=== PATIENT | female | born 1960 | race Caucasian/White ===

== ENCOUNTER 2019-01-04 10:46 | Emergency (ER) | payer OTHER ==
[2019-01-04] MEDS: BABY ASPIRIN 81 MG CHEW PO ONE (11:06)
[2019-01-04] MEDS: Nitrostat 0.4 MG (ED) SL ONE (11:06)
--- NOTE | 2019-01-04 11:11 | ERPHSYRPT ---
- History of Present Illness Time Seen by Provider: 01/04/19 11:07 Historian: patient Exam Limitations: no limitations Patient Subjective Stated Complaint: began having chest pain last nite at home took nitro and it alleviated it, she wasnt sure if gas indigestion or cardiac because she ate some griller before that as well. she ended up taking additional nitro about 4 or 5 she says Triage Nursing Assessment: pt is alert and oreitnedx3, able to ambulate by self , gait is steady but she is very weak, complaning of pain in chest, lung soudns cler diminished, some wheezes at base, pulses equal bialteral radius, patietn has skin rash all over upper nad lower extremities, 2+ edema in lower legs skin very tight and reddened , purple bruise like tinting on feet and toes. Physician History: 58-year-old female with significant past medical history of coronary artery disease, hypertension, morbid obesity, started having the chest pain since yesterday for which she took couple nitroglycerin, which did relieve her pain but then afterwards she started having chest pain again. Today morning her chest pain got worse so she took 3 or 4 more nitroglycerin, her chest pain did not relieved so she came to the emergency room. She denies any shortness of breath, nausea, vomiting. She states that her pain is referring to her left arm as well as on the left side of the face. Timing/Duration: yesterday Activities at Onset: activity Quality: burning Location: central Chest Pain Radiation: jaw, neck, arm Severity of Pain-Max: mild Severity of Pain-Current: mild Modifying Factors: Improves With: nothing Associated Symptoms: denies symptoms Prior Chest Pain/Cardiac Workup: angina, heart attack (few years ago) Nitro Today/Relief: 0.4 mg x 3 Aspirin Treatment Today: 81 mg x 1 Allergies/Adverse Reactions: sulfamethoxazole [From Bactrim] Allergy (Verified 01/04/19 11:04) trimethoprim [From Bactrim] Allergy (Verified 01/04/19 11:04) Home Medications: Aspirin [Aspirin EC] 162 mg PO DAILY 09/20/16 [History] Hydrocodone Bit/Acetaminophen [[place] 7.5-325 Tablet] 1 each PO Q8H PRN PRN 09/20 [History] Isosorbide Mononitrate [Isosorbide Mononitrate ER] 60 mg PO DAILY 09/20/16 [ History] Lisinopril 5 mg [Zestril 5 MG] 5 mg PO BID 09/20/16 [History] Metoprolol Tartrate [Lopressor] 50 mg PO BID 09/20/16 [History] Omeprazole 20 MG [Prilosec 20 mg] 20 mg PO DAILY 09/20/16 [History] Pravastatin Sodium [Pravachol] 40 mg PO DAILY 09/20/16 [History] Hx Tetanus, Diphtheria Vaccination/Date Given: Yes Hx Influenza Vaccination/Date Given: No Hx Pneumococcal Vaccination/Date Given: No Immunizations Up to Date: Yes - Review of Systems Constitutional: No Fever, No Chills Eyes: No Symptoms Ears, Nose, & Throat: No Symptoms Respiratory: No Cough, No Dyspnea Cardiac: Chest Pain, No Edema, No Syncope Abdominal/Gastrointestinal: No Abdominal Pain, No Nausea, No Vomiting, No Diarrhea Genitourinary Symptoms: No Dysuria Musculoskeletal: No Back Pain, No Neck Pain Skin: No Rash Neurological: No Dizziness, No Focal Weakness, No Sensory Changes Psychological: No Symptoms Endocrine: No Symptoms All Other Systems: Reviewed and Negative - Past Medical History Pertinent Past Medical History: Yes Neurological History: No Pertinent History Cardiac History: Hypertension, Myocardial Infarction (VT) Respiratory History: Asthma, Other Endocrine Medical History: No Pertinent History Musculoskeletal History: No Pertinent History Other Medical History: smoker - Past Surgical History Past Surgical History: Yes Cardiac: Cardiac Catheterization - Social History Smoking Status: Current every day smoker Drug Use: none Patient Lives Alone: No - Nursing Vital Signs Nursing Vital Signs: Initial Vital Signs Temperature 98 F 01/04/19 10:47 Pulse Rate 77 01/04/19 10:47 Respiratory Rate 20 01/04/19 10:47 Blood Pressure 143/107 01/04/19 10:47 O2 Sat by Pulse Oximetry 94 L 01/04/19 10:47 Pain Scale Pain Intensity 3 - Physical Exam General Appearance: no apparent distress, alert Eye Exam: PERRL/EOMI, eyes nml inspection Ears, Nose, Throat Exam: normal ENT inspection, moist mucous membranes Neck Exam: normal inspection, non-tender, supple, full range of motion Respiratory Exam: normal breath sounds, lungs clear, No respiratory distress Cardiovascular Exam: regular rate/rhythm, normal heart sounds Gastrointestinal/Abdomen Exam: soft, No tenderness, No mass Back Exam: normal inspection, No CVA tenderness, No vertebral tenderness Extremity Exam: normal inspection, normal range of motion Neurologic Exam: alert, oriented x 3, cooperative, normal mood/affect, sensation nml, No motor deficits Skin Exam: normal color, warm, dry SpO2: 94 - Course Nursing assessment & vital signs reviewed: Yes EKG Interpreted by Me: Non-specific ST Changes Rhythm Strip: Normal Sinus Rhythm - Radiology Exams Chest X-ray Interpretation: Reviewed by me Ordered Tests: Active Orders 24 hr Category Date Time Status Power Shovel Engineer STAT Care 01/04/19 10:54 Active EKG-ER Only STAT Care 01/04/19 10:53 Active IV Insertion STAT Care 01/04/19 10:53 Active Oxygen-ED Only Nasal Cannula 3 lpm Care 01/04/19 10:53 Active CHEST 1 VIEW (PORTABLE) Stat Exams 01/04/19 10:54 Taken CBC W DIFF Stat Lab 01/04/19 11:15 Completed CMP Stat Lab 01/04/19 11:15 Completed NT PRO BNP Stat Lab 01/04/19 11:15 Completed TROPONIN Q3H Lab 01/04/19 11:15 Completed TROPONIN Q3H Lab 01/04/19 14:00 Ordered TROPONIN Q3H Lab 01/04/19 17:00 Ordered TROPONIN Q3H Lab 01/04/19 20:00 Ordered TROPONIN Q3H Lab 01/04/19 23:00 Ordered Peak Expiratory Flow Rate ONCE RT 01/04/19 12:15 Active Respiratory Therapy Assessment DAILY RT 01/04/19 12:15 Active Medication Summary Generic Name Dose Route Start Last Admin Trade Name Freq PRN Reason Stop Dose Admin Sodium Chloride 1,000 mls @ 50 mls/hr 01/04/19 11:00 01/04/19 11:23 Sodium Chloride 0.9% 1000 Ml IV 02/03/19 10:59 50 mls/hr .Q20H KEVIN Administration Discontinued Medications Generic Name Dose Route Start Last Admin Trade Name Freq PRN Reason Stop Dose Admin Albuterol/Ipratropium 3 ml 01/04/19 12:07 01/04/19 12:16 Duoneb 0.5-3 Mg/3 Ml Neb IH 01/04/19 12:08 3 ml STAT ONE Administration Albuterol/Ipratropium Confirm 01/04/19 12:13 Duoneb 0.5-3 Mg/3 Ml Neb Administered 01/04/19 12:14 Dose 3 ml IH .STK-MED ONE Aspirin 81 mg 01/04/19 10:53 01/04/19 11:06 Baby Aspirin 81 Mg Chew PO 01/04/19 10:54 81 mg STAT ONE Administration Aspirin Confirm 01/04/19 11:19 Baby Aspirin 81 Mg Chew Administered 01/04/19 11:20 Dose 81 mg .ROUTE .STK-MED ONE Nitroglycerin 0.4 mg 01/04/19 10:53 01/04/19 11:06 Nitrostat 0.4 Mg (Ed) SL 01/04/19 10:54 0.4 mg STAT ONE Administration Nitroglycerin Confirm 01/04/19 11:19 Nitrostat 0.4 Mg (Ed) Administered 01/04/19 11:20 Dose 0.4 mg SL .STK-MED ONE Lab/Rad Data: Laboratory Result Diagrams 01/04/19 11:15 01/04/19 11:15 Laboratory Results 01/04/19 01/04/19 01/04/19 Range/Units 11:15 11:15 11:15 WBC 12.6 H (4.0-10.5) K/mm3 RBC 5.08 (4.1-5.4) M/mm3 Hgb 16.3 H (12.0-16.0) gm/dl Hct 51.3 H (35-47) % MCV 101.0 H (78-100) fl MCH 32.0 (26-32) pg MCHC 31.8 L (32-36) g/dl RDW 14.4 H (11.5-14.0) % Plt Count 291 (150-450) K/mm3 MPV 10.5 H (6-9.5) fl Gran % 79.8 H (36.0-66.0) % Eos # (Auto) 0.11 (0-0.5) Absolute Lymphs (auto) 1.85 (1.0-4.6) Absolute Monos (auto) 0.56 (0.0-1.3) Lymphocytes % 14.7 L (24.0-44.0) % Monocytes % 4.4 (0.0-12.0) % Eosinophils % 0.9 (0.00-5.0) % Basophils % 0.2 (0.0-0.4) % Absolute Granulocytes 10.04 H (1.4-6.9) Basophils # 0.03 (0-0.4) Sodium 142 (137-145) mmol/L Potassium 4.1 (3.5-5.1) mmol/L Chloride 104 (98-107) mmol/L Carbon Dioxide 30 (22-30) mmol/L Anion Gap 12.0 (5-15) MEQ/L BUN 10 (7-17) mg/dL Creatinine 0.61 (0.52-1.04) mg/dL Estimated GFR > 60.0 ML/MIN Glucose 117 H (74-106) mg/dL Calcium 9.1 (8.4-10.2) mg/dL Total Bilirubin 0.30 (0.2-1.3) mg/dL AST 24 (14-36) U/L ALT 18 (0-35) U/L Alkaline Phosphatase 86 (38-126) U/L Troponin I 0.177 H* (0.000-0.034) ng/mL NT-Pro-B Natriuret Pep 201 (0-900) pg/mL Serum Total Protein 7.9 (6.3-8.2) g/dL Albumin 4.3 (3.5-5.0) g/dL - Progress Progress: improved Air Movement: good Blood Culture(s) Obtained: No Antibiotics given: No Discussed with : Other (Dr Stephen otto covering for Dr Bragg, Dr Cuauhtemoc Martínez ED physician at [facility] ER) Counseled pt/family regarding: lab results, diagnosis, need for follow-up, rad results - Departure Departure Disposition: Transfer ([facility] ED) Clinical Impression: Non-ST elevation VT (NSTEMI) Condition: Stable Critical Care Time: Yes Critical Care Time(excluding separately billable procedures): 30-74 minutes Referrals: BAUTISTA ACEVES [Primary Care Provider] -
[2019-01-04] MEDS ORDERED: BABY ASPIRIN 81 MG CHEW ONE (11:19)
[2019-01-04] MEDS ORDERED: Sodium Chloride 0.9% 1000 ML 1,000 ML ONE (11:19)
[2019-01-04] MEDS ORDERED: Nitrostat 0.4 MG (ED) SL ONE (11:19)
[2019-01-04] MEDS: Sodium Chloride 0.9% 1000 ML 1,000 ML IV SCH (11:23)
[2019-01-04 11:49] LABS: BASOPHIL % 0.2 % (0.0-0.4); Basophil (Absolute #) 0.03 (0-0.4); Eosinophil % 0.9 % (0.00-5.0); Eosinophil (Absolute #) 0.11 (0-0.5); Granulocyte Absolute (ANC) 10.04 (1.4-6.9); Granulocytes % 79.8 % (36.0-66.0); Hematocrit 51.3 % (35-47); Hemoglobin 16.3 gm/dl (12.0-16.0); Lymphocyte (Absolute #) 1.85 (1.0-4.6); Lymphocytes % 14.7 % (24.0-44.0); Mean Corpuscular Hgb Concent. 31.8 g/dl (32-36); Mean Platelet Volume 10.5 fl (6-9.5); Monocyte (Absolute #) 0.56 (0.0-1.3); Monocytes % 4.4 % (0.0-12.0); Platelet Count 291 K/mm3 (150-450); Red Blood Count 5.08 M/mm3 (4.1-5.4); Red Cell Distribution Width 14.4 % (11.5-14.0); White Blood Count 12.6 K/mm3 (4.0-10.5)
[2019-01-04] MEDS ORDERED: DUONEB 0.5-3 MG/3 ml Neb IH ONE (12:13)
[2019-01-04 12:14] LABS: ALBUMIN 4.3 g/dL (3.5-5.0); ALKALINE PHOSPHATASE 86 U/L (38-126); BLOOD UREA NITROGEN 10 mg/dL (7-17); CHLORIDE 104 mmol/L (98-107); Calcium 9.1 mg/dL (8.4-10.2); Carbon Dioxide 30 mmol/L (22-30); Creatinine 1 0.61 mg/dL (0.52-1.04); Glucose 117 mg/dL (74-106); NT PRO BNP 201 pg/mL (0-900); Potassium 4.1 mmol/L (3.5-5.1); SGOT/AST 24 U/L (14-36); SGPT/ALT 18 U/L (0-35); SODIUM 142 mmol/L (137-145); Total Protein 7.9 g/dL (6.3-8.2)
[2019-01-04] MEDS: DUONEB 0.5-3 MG/3 ml Neb IH ONE (12:16)
[2019-01-04 13:00] VITALS: BP 161/101
[2019-01-04 13:09] VITALS: PULSE 91; O2SAT 95
--- NOTE | 2019-01-04 14:49 | XRAY ---
Indication: Chest pain. Comparison: October 01, 2016. Portable chest is clear. Heart and mediastinal structures within normal limits for AP portable technique. Bony thorax intact again with minimal degenerative changes and lower cervical fusion. Impression: Nonacute chest with chronic findings.
== END 2019-01-04 13:33 | disposition short-term general hospital (02) ==
LOC: ED 10:46
DX: I21.4 Non-ST elevation (NSTEMI) myocardial infarction (principal)
CPT/HCPCS: 36000; 36415; 71045; 80053; 83880; 84484; 85025; 93005; 93041; 94150; 94640; 96360; 96361; 99285; 99291; A9270-GY

== ENCOUNTER 2022-06-28 09:52 | Observation (INO) | payer OTHER ==
[2022-06-28] MEDS ORDERED: solu-MEDROL 125 MG, Sterile H2O 10 ml 2 ML IV ONE ×2 (10:43)
[2022-06-28] MEDS ORDERED: DUONEB 0.5-3 MG/3 ml Neb IH ONE ×2 (10:43→10:51)
[2022-06-28] MEDS ORDERED: solu-MEDROL ONE (11:09)
[2022-06-28] MEDS ORDERED: Sterile H2O 10 ml IJ ONE (11:09)
[2022-06-28 11:16] LABS: Absolute Neutrophil Ct (ANC) 15.63 x10^3/uL (1.4-6.9); BASOPHIL % 0.3 % (0.0-0.4); Basophil (Absolute #) 0.06 x10^3/uL (0-0.4); Eosinophil % 0.5 % (0.00-5.0); Hematocrit 44.4 % (35-47); Hemoglobin 13.4 g/dL (12.0-16.0); IMMATURE GRAN # 0.16 x10^3u/L (0.00-0.03); IMMATURE GRAN % 0.8 % (0.00-0.4); Lymphocytes % 11.6 % (24.0-44.0); Mean Cell Volume 98.2 fL (78-100); Mean Corpuscular Hemoglobin 29.6 pg (26-32); Mean Corpuscular Hgb Concent. 30.2 g/dL (32-36); Mean Platelet Volume 10.3 fL (7.5-11.0); Monocyte (Absolute #) 1.62 x10^3/uL (0.0-1.3); Monocytes % 8.2 % (0.0-12.0); Neutrophil % 78.6 % (36.0-66.0); Platelet Count 407 x10^3/uL (150-450); Red Blood Count 4.52 x10^6/uL (4.1-5.4); Red Cell Distribution Width 14.8 % (11.5-14.0); White Blood Count 19.9 x10^3/uL (4.0-10.5)
--- NOTE | 2022-06-28 11:45 | ERPHSYRPT ---
- History of Present Illness Time Seen by Provider: 06/28/22 10:31 Source: patient, family Exam Limitations: no limitations Patient Subjective Stated Complaint: C/O generalized fatigue for that past 4 days. States she hasn't left the house and is very drowsy. Patient was just at Dr. Unger's office prior to coming into the ER. Patient reports she had low oxygen saturation at his office and they recommended her coming to the ER for evaluation. Triage Nursing Assessment: Patient came into ED by W/C. She is alert and oriented. Labored breaths noted upon arrival to ER. 02 sats 87% on room air; 02 at 2L per N/C applied and sats increased to 93%. Bilateral feet noted to be purple in color and cool when up in W/C. Patient assisted to bed with stand by assist. Color to bilateral feet and BLE red once feet were placed up in the bed. Patient with a dry, non-productive cough noted. Patient reports a productive cough at home with varing colors of sputum. Physician History: 61 years old female with history of tobacco abuse, COPD, hypertension, hyperlipidemia, hypothyroidism, coronary artery disease status post stent ingpresented in the ER from primary care office with chief complaint of worsening generalized weakness with hypoxia. Patient apparently has a positive influenza 4 days ago and has been feeling weak fatigued tired, sleepy all the times and earlier her oxygen saturation was dropping to 87% on room air. Patient is currently on 2 L and satting around 93 to 95%. Patient reports generalized chest soreness because of repeated coughing and subjective feeling of fever and chills. Does have bilateral lower extremity swelling and redness which according to her is a chronic and is not any worsening than usual. Timing/Duration: week(s) (1), gradual onset, worse Activities at Onset: activity Severity of Dyspnea-Max: moderate Severity of Dyspnea-Current: moderate Possible Cause: illness exposure Modifying Factors: Worsens With: coughing, exertion Associated Symptoms: cough, chest pain/discomfort, edema, wheezing, muscle sp asms hands, productive cough, tightness Allergies/Adverse Reactions: sulfamethoxazole [From Bactrim] Allergy (Verified 06/28/22 10:28) trimethoprim [From Bactrim] Allergy (Verified 06/28/22 10:28) Home Medications: Albuterol 2.5 mg/3 ml Neb [Proventil 2.5 mg/3 ml Neb] 1 vial PO Q4-6HPRN PRN 06/28/22 [History] Aspirin EC 81 mg [Ecotrin 81 mg] 1 tab PO DAILY 06/28/22 [History] Atorvastatin Calcium [Lipitor] 1 tab PO HS 06/28/22 [History] Furosemide 40 mg [Lasix 40 MG] 1 tab PO DAILY 06/28/22 [History] Hydrocodone/Acetaminophen [Hydrocodone-Acetamin 7.5-325] 1 tab PO QID 06/28/22 [History] Levothyroxine Sodium 1 tab PO DAILY 06/28/22 [History] Lisinopril 10 mg [Zestril 10 MG] 1 tab PO BID 06/28/22 [History] Metoprolol Tartrate 50 mg [Lopressor 50 MG] 1 tab PO BID 06/28/22 [History] Omeprazole 1 tab PO DAILY 06/28/22 [History] Potassium Chloride 1 tab PO DAILY 06/28/22 [History] Hx Tetanus, Diphtheria Vaccination/Date Given: Yes Hx Influenza Vaccination/Date Given: No Hx Pneumococcal Vaccination/Date Given: Yes Immunizations Up to Date: Yes Travel Risk - International Travel Have you traveled outside of the country in past 3 weeks: No - Coronavirus Screening Are you exhibiting any of the following symptoms?: Yes Symptoms: Cough: New Onset, Shortness of Breath, Headaches/Body Aches/Fatigue - Vaccine Status Have you recieved a Covid-19 vaccination: No - Review of Systems Constitutional: Fever, Chills, Fatigue, Weakness Eyes: No Symptoms Ears, Nose, & Throat: No Symptoms Respiratory: Cough, Dyspnea, Dyspnea on Exertion ([place]), Wheezing Cardiac: Edema Abdominal/Gastrointestinal: No Symptoms Genitourinary Symptoms: No Symptoms Musculoskeletal: Myalgias Skin: Rash Neurological: No Symptoms Psychological: No Symptoms Endocrine: No Symptoms Hematologic/Lymphatic: No Symptoms Immunological/Allergic: No Symptoms - Past Medical History Pertinent Past Medical History: Yes Neurological History: No Pertinent History Cardiac History: Coronary Artery Disease, High Cholesterol, Hypertension, Myocardial Infarction ([place]) Respiratory History: Asthma, COPD, Other Endocrine Medical History: Hypothyroidism Musculoskeletal History: No Pertinent History GI Medical History: GERD Other Medical History: smoker - Past Surgical History Past Surgical History: Yes Cardiac: Cardiac Catheterization, Cardiac Stent Female Surgical History: Tubal Ligation Other Surgical History: NECK SURGERY - Social History Smoking Status: Current every day smoker How long have you smoked: >25 years Exposure to second hand smoke: No Drug Use: none Patient Lives Alone: No - Nursing Vital Signs Nursing Vital Signs: Initial Vital Signs Temperature 98.4 F 06/28/22 09:53 Pulse Rate 100 H 06/28/22 09:53 Respiratory Rate 34 H 06/28/22 09:53 Blood Pressure 110/77 06/28/22 09:53 O2 Sat by Pulse Oximetry 87 L 06/28/22 09:53 Pain Scale Pain Intensity 0 - Physical Exam General Appearance: mild distress, alert Eye Exam: PERRL/EOMI, eyes nml inspection Ears, Nose, Throat Exam: hearing grossly normal, normal ENT inspection Neck Exam: normal inspection, non-tender, supple, full range of motion Respiratory Exam: respiratory distress, diminished breath sounds, accessory muscle use, rhonchi, wheezing Cardiovascular/Chest Exam: normal heart sounds, regular rate/rhythm, edema (1+ bilateral) Abdominal/Gastrointestinal Exam: soft, normal bowel sounds, No tenderness Extremity Exam: non-tender, normal range of motion, pedal edema, swelling Neurologic Exam: alert, oriented x 3, cooperative, last dipper II-XII nml as tested, normal mood/affect, sensation nml, No motor deficits Skin Exam: normal color SpO2 Interpretation: O2 applied SpO2: 93 O2 Delivery: Nasal Cannula (2 L) - Course EKG Interpreted by Me: RATE (101), Sinus Tach, NORMAL AXIS, NORMAL INTERVALS, Non-specific ST Changes Ordered Tests: Active Orders 24 hr Category Date Time Status Bedrest ROUTINE Activity 06/28/22 15:52 Active Up With Assistance ROUTINE Activity 06/28/22 15:52 Active Social Worker STAT Care 06/28/22 10:44 Completed Code Status Order ROUTINE Care 06/28/22 15:52 Active EKG-ER Only STAT Care 06/28/22 10:43 Completed Fall Protocol Q1H Care 06/28/22 15:52 Active IV Care Q6H Care 06/28/22 15:52 Active IV Insertion STAT Care 06/28/22 10:[address] in Observation ROUTINE Care 06/28/22 15:52 Active [place] Hose, Apply ROUTINE Care 06/28/22 15:52 Active Weight,Daily 0600 Care 06/28/22 15:52 Active Heart-Healthy Diet Diet 06/28/22 Dinner Active CHEST 1 VIEW (PORTABLE) Stat Exams 06/28/22 11:50 Completed CHEST WITH CONTRAST [CT] Stat Exams 06/28/22 12:53 Completed BLOOD CULTURE Stat Lab 06/28/22 11:36 Received CBC W DIFF AM.LAB Lab 06/29/22 04:00 Ordered CBC W DIFF Stat Lab 06/28/22 11:10 Completed CMP AM.LAB Lab 06/29/22 04:00 Ordered CMP Stat Lab 06/28/22 11:10 Completed D-DIMER QUANTITATIVE Stat Lab 06/28/22 12:31 Completed Lactic Acid Stat Lab 06/28/22 11:12 Completed MAGNESIUM Stat Lab 06/28/22 11:10 Completed NT PRO BNP Stat Lab 06/28/22 11:10 Completed PROCALCITONIN Stat Lab 06/28/22 Completed T4 (Thyroxine) Stat Lab 06/28/22 11:10 Completed TROPONIN Q4H Lab 06/28/22 11:10 Completed TROPONIN Q4H Lab 06/28/22 15:03 Completed TROPONIN Q4H Lab 06/28/22 18:15 Received TSH, 3RD Generation Stat Lab 06/28/22 11:10 Completed Oxygen Nasal Cannula 2 lpm RT 06/28/22 15:52 Active Transfer Order Routine Transfer 06/28/22 Completed Medication Summary Generic Name Dose Route Start Last Admin Trade Name Freq PRN Reason Stop Dose Admin Acetaminophen 650 mg 06/28/22 15:52 Acetaminophen 325 Mg Tablet PO 07/28/22 15:51 Q4H PRN PRN PAIN AND/OR FEVER Albuterol/Ipratropium 3 ml 06/28/22 15:52 06/28/22 17:49 Ipratropium/Albuterol Sulfate 3 Ml Ampul.Neb IH 07/28/22 15:51 3 ml Q6HRT KEVIN Administration Clotrimazole 0 gm 06/28/22 19:00 Clotrimazole 30 Gm Cream TP 07/28/22 18:59 BID KEVIN Methylprednisolone Sodium 0 mg 06/28/22 18:00 06/28/22 18:41 Succinate 60 mg/ Sterile Water IV 07/28/22 17:59 60 mg 2 ml Q6HT KEVIN Administration Enoxaparin Sodium 40 mg 06/28/22 17:00 06/28/22 18:41 Enoxaparin Sodium 40 Mg/0.4 Ml Syringe SQ 07/28/22 16:59 40 mg DAILY KEVIN Administration Azithromycin 500 mg in 250 mls @ 250 mls/hr 06/29/22 10:00 Zithromax 500 Mg/ 250 Ml Nacl Premix IV 07/29/22 09:59 Q24H10 [facility] Ceftriaxone Sodium/Dextrose 2 g in 50 mls @ 100 mls/hr 06/29/22 10:00 Rocephin 2 Gm-D5w 50ml Bag IV 07/02/22 09:59 Q24H10 [facility] Insulin Human Lispro 0 unit 06/28/22 15:52 Insulin Lispro 1 Unit SQ 07/28/22 15:51 UD PRN HYPERGLYCEMIA Morphine Sulfate 2 mg 06/28/22 15:52 Morphine Sulfate 2 Mg/Ml Inj IV 07/03/22 15:51 Q4H PRN PRN PAIN Ondansetron HCl 4 mg 06/28/22 15:52 Ondansetron Hcl 4 Mg/2 Ml Vial IV 07/28/22 15:51 Q6H PRN PRN NAUSEA/VOMITING Pantoprazole Sodium 40 mg 06/28/22 17:00 06/28/22 18:41 Pantoprazole 40 Mg Vial IV 07/28/22 16:59 40 mg Q24H10 [facility] Administration Discontinued Medications Generic Name Dose Route Start Last Admin Trade Name Freq PRN Reason Stop Dose Admin Albuterol/Ipratropium 3 ml 06/28/22 10:43 06/28/22 10:55 Ipratropium/Albuterol Sulfate 3 Ml Ampul.Neb IH 06/28/22 10:44 3 ml STAT ONE Administration Albuterol/Ipratropium Confirm 06/28/22 10:51 Ipratropium/Albuterol Sulfate 3 Ml Ampul.Neb Administered 06/28/22 10:52 Dose 3 ml IH .STK-MED ONE Aspirin 324 mg 06/28/22 12:37 06/28/22 12:57 Aspirin 81 Mg Tab.Chew PO 06/28/22 12:38 324 mg STAT ONE Administration Aspirin Confirm 06/28/22 12:55 Aspirin 81 Mg Tab.Chew Administered 06/28/22 12:56 Dose 324 mg .ROUTE .STK-MED ONE Clotrimazole 30 gm 06/28/22 18:53 06/28/22 19:01 Clotrimazole 30 Gm Cream TP 06/28/22 18:54 Not Given STAT ONE Methylprednisolone Sodium 0 mg 06/28/22 10:43 06/28/22 11:12 Succinate 125 mg/ Sterile IV 06/28/22 10:44 125 mg Water 2 ml STAT ONE Administration Azithromycin 500 mg in 250 mls @ 250 mls/hr 06/28/22 12:15 06/28/22 13:59 Zithromax 500 Mg/ 250 Ml Nacl Premix IV 06/28/22 13:14 Infused STAT STA Infusion Ceftriaxone Sodium/Dextrose 2 g in 50 mls @ 100 mls/hr 06/28/22 12:15 06/28/22 12:50 Rocephin 2 Gm-D5w 50ml Bag IV 06/28/22 12:44 Infused STAT STA Infusion Ceftriaxone Sodium/Dextrose Confirm 06/28/22 12:18 Rocephin 2 Gm-D5w 50ml Bag Administered 06/28/22 12:19 Dose 2 g in 50 mls @ ud IV .STK-MED ONE Azithromycin Confirm 06/28/22 12:56 Zithromax 500 Mg/ 250 Ml Nacl Premix Administered 06/28/22 12:57 Dose 500 mg in 250 mls @ ud IV .STK-MED ONE Methylprednisolone Sodium Succinate Confirm 06/28/22 11:09 Methylprednis Sod Succ 125 Mg/2 Ml Vial Administered 06/28/22 11:10 Dose 125 mg .ROUTE .STK-MED ONE Oseltamivir Phosphate 75 mg 06/28/22 12:23 06/28/22 12:52 Oseltamivir 75 Mg Cap PO 06/28/22 12:24 Not Given STAT ONE Oseltamivir Phosphate 75 mg 06/28/22 22:00 Oseltamivir 75 Mg Cap PO 07/03/22 21:59 BID KEVIN Sterile Water Confirm 06/28/22 11:09 Water For Injection,Sterile 10 Ml Vial Administered 06/28/22 11:10 Dose 10 ml IJ .STK-MED ONE Lab/Rad Data: Laboratory Result Diagrams 06/28/22 11:10 06/28/22 11:10 Laboratory Results 01/19/23 01/19/23 01/19/23 Range/Units 15:03 12:31 11:20 WBC (4.0-10.5) x10^3/uL RBC (4.1-5.4) x10^6/uL Hgb (12.0-16.0) g/dL Hct (35-47) % MCV (78-100) fL MCH (26-32) pg MCHC (32-36) g/dL RDW (11.5-14.0) % Plt Count (150-450) x10^3/uL MPV (7.5-11.0) fL Gran % (36.0-66.0) % Immature Gran % (Auto) (0.00-0.4) % Nucleat RBC Rel Count (0.00-0.1) % Eos # (Auto) (0-0.5) x10^3/uL Immature Gran # (Auto) (0.00-0.03) x10^3u/L Absolute Lymphs (auto) (1.0-4.6) x10^3/uL Absolute Monos (auto) (0.0-1.3) x10^3/uL Absolute Nucleated RBC (0.00-0.01) x10^3u/L Lymphocytes % (24.0-44.0) % Monocytes % (0.0-12.0) % Eosinophils % (0.00-5.0) % Basophils % (0.0-0.4) % Absolute Granulocytes (1.4-6.9) x10^3/uL Basophils # (0-0.4) x10^3/uL D-Dimer 2.18 H* (0.0-0.50) mg/L Sodium (137-145) mmol/L Potassium (3.5-5.1) mmol/L Chloride (98-107) mmol/L Carbon Dioxide (22-30) mmol/L Anion Gap (5-15) MEQ/L Venous BUN (8-26) mg/dL Creatinine (0.6-1.3) mg/dL Estimated GFR ML/MIN Glucose (74-106) mg/dL Lactic Acid (0.4-2.0) Calcium (8.4-10.2) mg/dL Magnesium (1.6-2.3) mg/dL Total Bilirubin (0.2-1.3) mg/dL AST (14-36) U/L ALT (0-35) U/L Alkaline Phosphatase (38-126) U/L Troponin I (0.000-0.034) ng/mL NT-Pro-B Natriuret Pep (0-900) pg/mL Serum Total Protein (6.3-8.2) g/dL Albumin (3.5-5.0) g/dL Influenza Type A Ag NEGATIVE (NEGATIVE) Influenza Type B Ag NEGATIVE (NEGATIVE) RSV (PCR) NEGATIVE (Negative) SARS-CoV-2 (PCR) NEGATIVE (NEGATIVE) Slides for Path Review 06/28/22 06/28/22 06/28/22 Range/Units 11:12 11:10 11:10 WBC (4.0-10.5) x10^3/uL RBC (4.1-5.4) x10^6/uL Hgb (12.0-16.0) g/dL Hct (35-47) % MCV (78-100) fL MCH (26-32) pg MCHC (32-36) g/dL RDW (11.5-14.0) % Plt Count (150-450) x10^3/uL MPV (7.5-11.0) fL Gran % (36.0-66.0) % Immature Gran % (Auto) (0.00-0.4) % Nucleat RBC Rel Count (0.00-0.1) % Eos # (Auto) (0-0.5) x10^3/uL Immature Gran # (Auto) (0.00-0.03) x10^3u/L Absolute Lymphs (auto) (1.0-4.6) x10^3/uL Absolute Monos (auto) (0.0-1.3) x10^3/uL Absolute Nucleated RBC (0.00-0.01) x10^3u/L Lymphocytes % (24.0-44.0) % Monocytes % (0.0-12.0) % Eosinophils % (0.00-5.0) % Basophils % (0.0-0.4) % Absolute Granulocytes (1.4-6.9) x10^3/uL Basophils # (0-0.4) x10^3/uL D-Dimer (0.0-0.50) mg/L Sodium 139 (137-145) mmol/L Potassium 4.2 (3.5-5.1) mmol/L Chloride 101 (98-107) mmol/L Carbon Dioxide 31 H (22-30) mmol/L Anion Gap 11.1 (5-15) MEQ/L Venous BUN 26 (8-26) mg/dL Creatinine 1.1 (0.6-1.3) mg/dL Estimated GFR > 60.0 ML/MIN Glucose 117 H (74-106) mg/dL Lactic Acid 1.3 (0.4-2.0) Calcium 8.7 (8.4-10.2) mg/dL Magnesium 2.4 H (1.6-2.3) mg/dL Total Bilirubin 0.80 (0.2-1.3) mg/dL AST 44 H (14-36) U/L ALT 31 (0-35) U/L Alkaline Phosphatase 148 H (38-126) U/L Troponin I 0.305 H* (0.000-0.034) ng/mL NT-Pro-B Natriuret Pep 446 (0-900) pg/mL Serum Total Protein 8.5 H (6.3-8.2) g/dL Albumin 4.1 (3.5-5.0) g/dL Influenza Type A Ag (NEGATIVE) Influenza Type B Ag (NEGATIVE) RSV (PCR) (Negative) SARS-CoV-2 (PCR) (NEGATIVE) Slides for Path Review 06/28/22 Range/Units 11:10 WBC 19.9 H (4.0-10.5) x10^3/uL RBC 4.52 (4.1-5.4) x10^6/uL Hgb 13.4 (12.0-16.0) g/dL Hct 44.4 (35-47) % MCV 98.2 (78-100) fL MCH 29.6 (26-32) pg MCHC 30.2 L (32-36) g/dL RDW 14.8 H (11.5-14.0) % Plt Count 407 (150-450) x10^3/uL MPV 10.3 (7.5-11.0) fL Gran % 78.6 H (36.0-66.0) % Immature Gran % (Auto) 0.8 H (0.00-0.4) % Nucleat RBC Rel Count 0.0 (0.00-0.1) % Eos # (Auto) 0.10 (0-0.5) x10^3/uL Immature Gran # (Auto) 0.16 H (0.00-0.03) x10^3u/L Absolute Lymphs (auto) 2.30 (1.0-4.6) x10^3/uL Absolute Monos (auto) 1.62 H (0.0-1.3) x10^3/uL Absolute Nucleated RBC 0.00 (0.00-0.01) x10^3u/L Lymphocytes % 11.6 L (24.0-44.0) % Monocytes % 8.2 (0.0-12.0) % Eosinophils % 0.5 (0.00-5.0) % Basophils % 0.3 (0.0-0.4) % Absolute Granulocytes 15.63 H (1.4-6.9) x10^3/uL Basophils # 0.06 (0-0.4) x10^3/uL D-Dimer (0.0-0.50) mg/L Sodium (137-145) mmol/L Potassium (3.5-5.1) mmol/L Chloride (98-107) mmol/L Carbon Dioxide (22-30) mmol/L Anion Gap (5-15) MEQ/L Venous BUN (8-26) mg/dL Creatinine (0.6-1.3) mg/dL Estimated GFR ML/MIN Glucose (74-106) mg/dL Lactic Acid (0.4-2.0) Calcium (8.4-10.2) mg/dL Magnesium (1.6-2.3) mg/dL Total Bilirubin (0.2-1.3) mg/dL AST (14-36) U/L ALT (0-35) U/L Alkaline Phosphatase (38-126) U/L Troponin I (0.000-0.034) ng/mL NT-Pro-B Natriuret Pep (0-900) pg/mL Serum Total Protein (6.3-8.2) g/dL Albumin (3.5-5.0) g/dL Influenza Type A Ag (NEGATIVE) Influenza Type B Ag (NEGATIVE) RSV (PCR) (Negative) SARS-CoV-2 (PCR) (NEGATIVE) Slides for Path Review YES - Progress Progress: improved, re-examined Air Movement: good Progress Note: 06/28/22 12:32 61 years old female with history of COPD tobacco abuse, CAD with stenting, hypertension, hypothyroidism with recent influenza positive is sent in ER from primary care office with hypoxia. Patient has been fatigued tired and sleeping all the time. Patient complaining of generalized chest soreness because of repeated coughing. Patient was hypoxic to 87% on presentation in the ER and currently on 2 L oxygen. EKG showed sinus rhythm with no acute ST elevations. He is given DuoNeb and Solu-Medrol, on reevaluation feeling much better has a white count of 20 with normal lactate and chest x-ray showing pneumonic consolidation, given a dose of Rocephin and Zithromax. Initial troponin 0.305. I have discussed with Dr. Velazquez who does not think patient has acute cardiac event causing elevation in troponin but because of influenza and underlying respiratory issue causing it and I do agree with him. He does not want me to transfer patient and will trend cardiac enzymes. I have shared the results with patient and family who understand and agree with it. I will obtain D-dimer and if positive CTA chest to make sure she does not have a pulmonary embolism causing elevation in her troponin. Blood Culture(s) Obtained: Yes Antibiotics given: Yes Discussed with : Ana Will see patient in: hospital (observation) Counseled pt/family regarding: lab results, diagnosis, rad results, smoking cessation - Departure Departure Disposition: Observation Clinical Impression: Non-ST elevation [place] (NSTEMI) Respiratory failure Qualifiers: Chronicity: acute Respiratory failure complication: hypoxia Qualified Code(s): J96.01 - Acute respiratory failure with hypoxia Pneumonia Qualifiers: Pneumonia type: due to unspecified organism Laterality: bilateral Lung loca tion: unspecified part of lung Qualified Code(s): J18.9 - Pneumonia, unspecified organism Condition: Good Critical Care Time: No
--- NOTE | 2022-06-28 12:07 | XRAY ---
Indication: Short of breath. Comparison: January 04, 2019 Portable chest demonstrates new left mid to lower lung patchy consolidating and nonconsolidating airspace disease without large effusion. Heart not enlarged. Bony thorax intact again with mild degenerative changes.
[2022-06-28 12:11] LABS: ALBUMIN 4.1 g/dL (3.5-5.0); ALKALINE PHOSPHATASE 148 U/L (38-126); ANION GAP 11.1 MEQ/L (5-15); CHLORIDE 101 mmol/L (98-107); Calcium 8.7 mg/dL (8.4-10.2); Carbon Dioxide 31 mmol/L (22-30); Creatinine 1 0.93 mg/dL (0.52-1.04); EST GLOMERULAR FILTRATION RATE > 60.0 ML/MIN; Glucose 117 mg/dL (74-106); MAGNESIUM 2.4 mg/dL (1.6-2.3); NT PRO BNP 446 pg/mL (0-900); Potassium 4.2 mmol/L (3.5-5.1); SGOT/AST 44 U/L (14-36); SGPT/ALT 31 U/L (0-35); SODIUM 139 mmol/L (137-145); Total Protein 8.5 g/dL (6.3-8.2)
[2022-06-28] MEDS ORDERED: ROCEPHIN 2 Gm-D5w 50ML BAG** 2 G/50 ML IVPB IV STA (12:15)
[2022-06-28] MEDS ORDERED: Zithromax 500 MG/ 250 ML NaCl Premix 500 MG/250 ML IVPB IV STA (12:15)
[2022-06-28] MEDS ORDERED: ROCEPHIN 2 Gm-D5w 50ML BAG** 2 G/50 ML IVPB IV ONE (12:18)
[2022-06-28] MEDS ORDERED: Tamiflu 75MG Capsule PO ONE (12:23)
[2022-06-28 12:25] LABS: INFLUENZA A NEGATIVE (NEGATIVE); INFLUENZA B NEGATIVE (NEGATIVE); RESPIRATORY SYNCTIAL VIRUS NEGATIVE (Negative); SARS-CoV-2 Xpert Express NEGATIVE (NEGATIVE)
[2022-06-28] MEDS ORDERED: BABY ASPIRIN 81 MG CHEW PO ONE (12:37)
[2022-06-28] MEDS ORDERED: BABY ASPIRIN 81 MG CHEW ONE (12:55)
[2022-06-28] MEDS ORDERED: Zithromax 500 MG/ 250 ML NaCl Premix 500 MG/250 ML IVPB IV ONE (12:56)
[2022-06-28 13:24] LABS: Slide Review 1 YES
[2022-06-28 13:29] LABS: ISTAT BUN 26 mg/dL (8-26)
[2022-06-28 13:30] LABS: ISTAT CREA 1.1 mg/dL (0.6-1.3)
--- NOTE | 2022-06-28 14:33 | XRAY ---
Indication: Cough and short of breath. Elevated d-dimer. Multiple contiguous axial images obtained of the chest using 80 cc Isovue 370 contrast and PE protocol. Comparison: None Adequate opacification of the pulmonary arteries. However mild diffuse respiration artifact limits evaluation of the more distal lobar and segmental branches. No obvious central pulmonary embolus. Heart not enlarged. Aorta mildly arteriosclerotic without aneurysm/dissection. No pathologic mediastinal/hilar lymphadenopathy. Small hiatal hernia. Lungs demonstrates scattered bilateral subsegmental atelectasis, greatest inferior right upper lobe. Left lower lobe demonstrates irregular shaped noncalcified masslike opacity versus consolidating airspace disease measuring at least 4.0 x 5.5 cm in greatest axial dimension. Inferior right upper lobe demonstrates patchy airspace disease. No effusion or pneumothorax. Bony thorax intact with mild degenerative changes throughout the spine. Limited upper abdomen demonstrates diffuse fatty liver. Impression: 1. Pulmonary embolus evaluation limited by respiration artifact. No obvious central pulmonary embolus. 2. Large left lower lobe irregular noncalcified masslike opacity versus consolidating airspace disease. Minimal right upper lobe patchy airspace disease. 3. Scattered bilateral subsegmental atelectasis. 4. Small hiatal hernia and fatty liver.
[2022-06-28] MEDS ORDERED: HUMALOG SQ PRN (15:52)
[2022-06-28] MEDS ORDERED: TYLENOL 325 MG PO PRN (15:52)
[2022-06-28] MEDS ORDERED: Zofran 4 MG/2 ML VIAL IV PRN (15:52)
[2022-06-28] MEDS ORDERED: MORPHINE SULFATE 2 MG INJ IV PRN (15:52)
[2022-06-28] MEDS ORDERED: PROTONIX 40 MG IV IV SCH (17:00)
[2022-06-28] MEDS: DUONEB 0.5-3 MG/3 ml Neb IH SCH (17:49)
[2022-06-28] MEDS: solu-MEDROL 60 MG, Sterile H2O 10 ml 2 ML IV SCH ×4 (18:41→22:59)
[2022-06-28] MEDS: ENOXAPARIN SODIUM SQ SCH (18:41)
[2022-06-28] MEDS ORDERED: LOTRIMIN CREAM 30 GM TP ONE ×2 (18:53→18:59)
[2022-06-28] MEDS: LOTRIMIN CREAM 30 GM TP SCH (20:36)
[2022-06-28] MEDS ORDERED: Tamiflu 75MG Capsule PO SCH (22:00)
[2022-06-28] MEDS: NORCO 7.5/325 MG TAB PO SCH (22:59)
[2022-06-28] MEDS: ZOCOR 20MG PO SCH (22:59)
[2022-06-29] MEDS: DUONEB 0.5-3 MG/3 ml Neb IH SCH ×5 (00:49→19:24)
[2022-06-29 05:11] LABS: Absolute Neutrophil Ct (ANC) 19.51 x10^3/uL (1.4-6.9); BASOPHIL % 0.2 % (0.0-0.4); Basophil (Absolute #) 0.04 x10^3/uL (0-0.4); Eosinophil (Absolute #) 0 x10^3/uL (0-0.5); Hematocrit 43.8 % (35-47); IMMATURE GRAN % 0.9 % (0.00-0.4); Lymphocyte (Absolute #) 1.33 x10^3/uL (1.0-4.6); Lymphocytes % 6.1 % (24.0-44.0); Mean Cell Volume 99.5 fL (78-100); Mean Corpuscular Hemoglobin 29.5 pg (26-32); Mean Corpuscular Hgb Concent. 29.7 g/dL (32-36); Mean Platelet Volume 10.5 fL (7.5-11.0); Monocyte (Absolute #) 0.68 x10^3/uL (0.0-1.3); Monocytes % 3.1 % (0.0-12.0); Neutrophil % 89.7 % (36.0-66.0); Platelet Count 389 x10^3/uL (150-450); Red Cell Distribution Width 14.6 % (11.5-14.0); White Blood Count 21.8 x10^3/uL (4.0-10.5)
[2022-06-29 05:24] LABS: ALBUMIN 3.8 g/dL (3.5-5.0); ANION GAP 10.5 MEQ/L (5-15); BILIRUBIN,TOTAL 0.3 mg/dL (0.2-1.3); Calcium 8.8 mg/dL (8.4-10.2); Creatinine 1 1.08 mg/dL (0.52-1.04); EST GLOMERULAR FILTRATION RATE 54.6 ML/MIN; Potassium 4.2 mmol/L (3.5-5.1); Total Protein 7.9 g/dL (6.3-8.2)
[2022-06-29] MEDS ORDERED: DUONEB 0.5-3 MG/3 ml Neb IH ONE (05:45)
[2022-06-29] MEDS: Zestril 10 MG PO SCH ×2 (06:33→08:35)
[2022-06-29] MEDS: Lopressor 50 MG PO SCH ×2 (06:33→08:34)
[2022-06-29] MEDS: solu-MEDROL 60 MG, Sterile H2O 10 ml 2 ML IV SCH ×6 (06:43→17:09)
[2022-06-29] MEDS ORDERED: PROVENTIL 2.5 MG/3 ML NEB IH PRN (07:15)
[2022-06-29] MEDS: Klor Con PO SCH (08:34)
[2022-06-29] MEDS: Protonix 40MG Tablet PO SCH (08:34)
[2022-06-29] MEDS: ECOTRIN 81 MG PO SCH (08:35)
[2022-06-29] MEDS: SYNTHROID 25 MCG PO SCH (08:35)
[2022-06-29] MEDS: SYNTHROID 150 MCG PO SCH (08:35)
[2022-06-29] MEDS: Lasix 40 MG PO SCH (08:35)
[2022-06-29] MEDS: NORCO 7.5/325 MG TAB PO SCH (08:35)
[2022-06-29] MEDS: ENOXAPARIN SODIUM SQ SCH (08:35)
[2022-06-29] MEDS: ROCEPHIN 2 Gm-D5w 50ML BAG** 2 G/50 ML IVPB IV SCH (08:36)
[2022-06-29] MEDS: Zithromax 500 MG/ 250 ML NaCl Premix 500 MG/250 ML IVPB IV SCH (09:10)
[2022-06-29] MEDS: LOTRIMIN CREAM 30 GM TP SCH ×2 (09:10→22:22)
[2022-06-29] MEDS ORDERED: LEVOTHYROXINE SODIUM 175 MCG PO SCH (10:00)
[2022-06-29] MEDS ORDERED: NON-FORMULARY ITEM (Potassium Chloride [Potassium Chloride] 10 MEQ Tablet.Er) PO SCH (10:00)
[2022-06-29] MEDS ORDERED: NON-FORMULARY ITEM (Omeprazole [Omeprazole] 20 MG Tablet.Dr) PO SCH (10:00)
[2022-06-29] MEDS ORDERED: ECOTRIN 81 MG PO SCH (10:00)
[2022-06-29] MEDS ORDERED: solu-MEDROL ONE (16:57)
[2022-06-29] MEDS: NORCO 7.5/325 MG TAB PO PRN (22:14)
[2022-06-29] MEDS: ZOCOR 20MG PO SCH (22:15)
[2022-06-30] MEDS ORDERED: solu-MEDROL ONE ×2 (00:05→06:20)
[2022-06-30] MEDS: solu-MEDROL 60 MG, Sterile H2O 10 ml 2 ML IV SCH ×6 (00:11→18:07)
[2022-06-30] MEDS: DUONEB 0.5-3 MG/3 ml Neb IH SCH ×4 (01:20→17:49)
[2022-06-30] MEDS: Lopressor 50 MG PO SCH ×2 (04:45→09:05)
[2022-06-30] MEDS: Zestril 10 MG PO SCH ×2 (04:45→09:05)
[2022-06-30 08:42] LABS: Hematocrit 42.7 % (35-47); Hemoglobin 12.4 g/dL (12.0-16.0); Mean Cell Volume 100.2 fL (78-100); Mean Corpuscular Hemoglobin 29.1 pg (26-32); Mean Platelet Volume 10.2 fL (7.5-11.0); Platelet Count 457 x10^3/uL (150-450); Red Blood Count 4.26 x10^6/uL (4.1-5.4); Red Cell Distribution Width 14.6 % (11.5-14.0)
[2022-06-30 08:46] LABS: White Blood Count 31.8 x10^3/uL (4.0-10.5)
[2022-06-30] MEDS: ROCEPHIN 2 Gm-D5w 50ML BAG** 2 G/50 ML IVPB IV SCH (09:05)
[2022-06-30] MEDS: ENOXAPARIN SODIUM SQ SCH (09:05)
[2022-06-30] MEDS: ECOTRIN 81 MG PO SCH (09:05)
[2022-06-30] MEDS: Protonix 40MG Tablet PO SCH (09:05)
[2022-06-30] MEDS: Lasix 40 MG PO SCH (09:05)
[2022-06-30] MEDS: SYNTHROID 25 MCG PO SCH (09:05)
[2022-06-30] MEDS: Klor Con PO SCH (09:05)
[2022-06-30] MEDS: SYNTHROID 150 MCG PO SCH (09:05)
[2022-06-30] MEDS: Zithromax 500 MG/ 250 ML NaCl Premix 500 MG/250 ML IVPB IV SCH (09:13)
--- NOTE | 2022-06-30 10:23 | PCM.HP ---
History of Present Illness - Chief Complaint Chief Complaint: Acute hypoxic respiratory failure, pneumonia, NSTEMI History of Present Illness: is a 61 year old female.with history of tobacco abuse, COPD, hypertension, hyperlipidemia, hypothyroidism, coronary artery disease status p ost stentingpresented in the ER from primary care office with chief complaint of worsening generalized weakness with hypoxia. Patient apparently has a positive influenza 4 days ago and has been feeling weak fatigued tired, sleepy all the times and earlier her oxygen saturation was dropping to 87% on room air. Patient is currently on 2 L and satting around 93 to 95%. Patient reports generalized chest soreness because of repeated coughing and subjective feeling of fever and chills. Does have bilateral lower extremity swelling and redness which according to her is a chronic and is not any worsening than usual. Timing/Duration: week(s) (1), gradual onset, worse Activities at Onset: activity Severity of Dyspnea-Max: moderate Severity of Dyspnea-Current: moderate Possible Cause: illness exposure Modifying Factors: Worsens With: coughing, exertion Associated Symptoms: cough, chest pain/discomfort, edema, wheezing, muscle spasms hands, productive cough, tightness - Review of Systems Constitutional: Weakness, No Fever, No Chills Eyes: No Symptoms Ears, Nose, & Throat: No Symptoms Respiratory: Cough, Orthopnea, Short Of Breath, Wheezing Cardiac: Chest Pain, Orthopnea, PND, No Edema, No Syncope Abdominal/Gastrointestinal: No Abdominal Pain, No Nausea, No Vomiting, No Diarrhea Genitourinary Symptoms: No Dysuria Musculoskeletal: No Back Pain, No Neck Pain Skin: No Rash Neurological: No Dizziness, No Focal Weakness, No Sensory Changes Psychological: No Symptoms Endocrine: No Symptoms Hematologic/Lymphatic: No Symptoms Immunological/Allergic: No Symptoms Medications & Allergies Home Medications: Home Medication List Albuterol 2.5 mg/3 ml Neb [Proventil 2.5 mg/3 ml Neb] 1 vial PO Q4-6HPRN PRN 06/28/22 [History Confirmed 06/28/22] Aspirin EC 81 mg [Ecotrin 81 mg] 1 tab PO DAILY 06/28/22 [History Confirmed 06/28/22] Atorvastatin Calcium [Lipitor] 1 tab PO HS 06/28/22 [History Confirmed 06/28/22] Furosemide 40 mg [Lasix 40 MG] 1 tab PO DAILY 06/28/22 [History Confirmed 06/28/22] Hydrocodone/Acetaminophen [Hydrocodone-Acetamin 7.5-325] 1 tab PO QID 06/28/22 [History Confirmed 06/28/22] Levothyroxine Sodium 1 tab PO DAILY 06/28/22 [History Confirmed 06/28/22] Lisinopril 10 mg [Zestril 10 MG] 1 tab PO BID 06/28/22 [History Confirmed 06/28/22] Metoprolol Tartrate 50 mg [Lopressor 50 MG] 1 tab PO BID 06/28/22 [History Confirmed 06/28/22] Omeprazole 1 tab PO DAILY 06/28/22 [History Confirmed 06/28/22] Potassium Chloride 1 tab PO DAILY 06/28/22 [History Confirmed 06/28/22] Allergies/Adverse Reactions: Allergies Allergy/AdvReac Type Severity Reaction Status Date / Time sulfamethoxazole Allergy Verified 06/28/22 10:28 [From Bactrim] trimethoprim [From Bactrim] Allergy Verified 06/28/22 10:28 - Past Medical History Past Medical History: Yes Neurological History: No Pertinent History Cardiac History: Coronary Artery Disease, High Cholesterol, Hypertension, Myocardial Infarction (MD) Respiratory History: Asthma, COPD, Other Endocrine Medical History: Hypothyroidism Musculoskelatal History: No Pertinent History GI Medical History: GERD History: No Pertinent History Pyscho-Social History: No Pertinent History Reproductive Disorders: No Pertinent History Comment: smoker - Past Surgical History Past Surgical History: Yes Neuro Surgical History: No Pertinent History Cardiac History: Cardiac Catheterization, Cardiac Stent Respiratory Surgery: No Pertinent History GI Surgical History: No Pertinent History Musculskeletal Surgical Hx: No Pertinent History Female Surgical History: Tubal Ligation Other Surgical History: NECK SURGERY - Social History Smoking Status: Current every day smoker How long have you smoked: >25 years Exposure to second hand smoke: No Alcohol: None Drug Use: none - Physical Exam Vital Signs: Vital Signs - 24 hr Temp Pulse Resp BP Pulse Ox 06/30/22 07:54 97.5 F 96 H 28 H 174/77 91 L 06/30/22 07:26 94 L 06/30/22 07:02 95 H 18 92 L 06/30/22 03:40 98.1 F 112 H 21 125/60 94 L 06/30/22 01:22 88 22 94 L 06/29/22 23:37 97.3 F 109 H 17 114/56 94 L 06/29/22 20:00 97.8 F 103 H 20 122/58 93 L 06/29/22 19:26 102 H 22 91 L 06/29/22 16:00 98.7 F 102 H 22 120/57 92 L 06/29/22 13:19 98 H 22 91 L 06/29/22 11:11 97.8 F 108 H 21 119/58 89 L General Appearance: no apparent distress, alert Neurologic Exam: alert, oriented x 3, cooperative, normal mood/affect, nml cerebellar function, nml station & gait, sensation nml, No motor deficits Eye Exam: PERRL/EOMI, eyes nml inspection Ears, Nose, Throat Exam: normal ENT inspection, TMs normal, pharynx normal, moist mucous membranes Neck Exam: normal inspection, non-tender, supple, full range of motion Respiratory Exam: diminished breath sounds, crackles/rales, rhonchi, wheezing, No respiratory distress Cardiovascular Exam: regular rate/rhythm, normal heart sounds, normal peripheral pulses Gastrointestinal/Abdomen Exam: soft, normal bowel sounds, No tenderness, No mass Back Exam: normal inspection, normal range of motion, No CVA tenderness, No vertebral tenderness Extremity Exam: normal inspection, normal range of motion, pelvis stable Skin Exam: normal color, warm, dry, No rash Lymphatic Exam: No adenopathy Results - Labs Lab/Micro Results: Lab Results-Last 24 Hours 06/30/22 Range/Units 08:14 WBC 31.8 H* (4.0-10.5) x10^3/uL RBC 4.26 (4.1-5.4) x10^6/uL Hgb 12.4 (12.0-16.0) g/dL Hct 42.7 (35-47) % MCV 100.2 H (78-100) fL MCH 29.1 (26-32) pg MCHC 29.0 L (32-36) g/dL RDW 14.6 H (11.5-14.0) % Plt Count 457 H (150-450) x10^3/uL MPV 10.2 (7.5-11.0) fL Smear Path Review Pending - Radiology Impressions Radiology Exams & Impressions: Radiology Procedures Category Date Time Status CHEST 1 VIEW (PORTABLE) Stat Exams 06/28/22 11:50 Completed CHEST WITH CONTRAST [CT] Stat Exams 06/28/22 12:53 Completed Assessment/Plan (1) Pneumonia Current Visit: Yes Status: Acute Qualifiers: Pneumonia type: due to unspecified organism Laterality: bilateral Lung location: unspecified part of lung Qualified Code(s): J18.9 - Pneumonia, unspecified organism Assessment & Plan: Chief Complaint Diagnosis Acute hypoxic respiratory failure, pneumonia, NSTEMI Allergies Allergy/AdvReac Type Severity Reaction Status Date / Time sulfamethoxazole Allergy Verified 06/28/22 10:28 [From Bactrim] trimethoprim [From Bactrim] Allergy Verified 06/28/22 10:28 Vital Signs (Last 24 hours) Temp Pulse Resp BP Pulse Ox 06/30/22 07:54 97.5 F 96 H 28 H 174/77 91 L 06/30/22 07:26 94 L 06/30/22 07:02 95 H 18 92 L 06/30/22 03:40 98.1 F 112 H 21 125/60 94 L 06/30/22 01:22 88 22 94 L 06/29/22 23:37 97.3 F 109 H 17 114/56 94 L 06/29/22 20:00 97.8 F 103 H 20 122/58 93 L 06/29/22 19:26 102 H 22 91 L 06/29/22 16:00 98.7 F 102 H 22 120/57 92 L 06/29/22 13:19 98 H 22 91 L 06/29/22 11:11 97.8 F 108 H 21 119/58 89 L Home Medications Medication Instructions Recorded Confirmed Last Taken Type Albuterol 2.5 mg/3 ml Neb 1 vial PO Q4-6HPRN PRN 06/28/22 06/28/22 06/27/22 History [Proventil 2.5 mg/3 ml Neb] Aspirin EC 81 mg [Ecotrin 81 1 tab PO DAILY 06/28/22 06/28/22 06/28/22 08:00 History mg] Atorvastatin Calcium [Lipitor] 1 tab PO HS 06/28/22 06/28/22 06/27/22 21:00 History Furosemide 40 mg [Lasix 40 1 tab PO DAILY 06/28/22 06/28/22 06/28/22 08:00 History MG] Hydrocodone/Acetaminophen 1 tab PO QID 06/28/22 06/28/22 06/28/22 History [Hydrocodone-Acetamin 7.5-325] Levothyroxine Sodium 1 tab PO DAILY 06/28/22 06/28/22 06/28/22 08:00 History Lisinopril 10 mg [Zestril 10 1 tab PO BID 06/28/22 06/28/22 06/28/22 08:00 History MG] Metoprolol Tartrate 50 mg 1 tab PO BID 06/28/22 06/28/22 06/28/22 08:00 History [Lopressor 50 MG] Omeprazole 1 tab PO DAILY 06/28/22 06/28/22 06/28/22 08:00 History Potassium Chloride 1 tab PO DAILY 06/28/22 06/28/22 06/28/22 08:00 History Current Medications Generic Name Dose Route Start Last Admin Trade Name Freq PRN Reason Stop Dose Admin Acetaminophen 650 mg 06/28/22 15:52 Acetaminophen 325 Mg Tablet PO 07/28/22 15:51 Q4H PRN PRN PAIN AND/OR FEVER Hydrocodone Bitart/Acetaminophen 1 tab 06/29/22 08:48 06/29/22 22:14 Hydrocodone /Apap 7.5/325 Mg 1 Each Tablet PO 07/04/22 08:59 1 tab QID PRN PRN Administration PAIN Albuterol Sulfate 2.5 mg 06/29/22 07:15 Albuterol Sulfate 2.5 Mg/3 Ml [facility] 07/29/22 07:14 Q4HPRN PRN SHORTNESS OF BREATH Albuterol/Ipratropium 3 ml 06/28/22 15:52 06/30/22 07:00 Ipratropium/Albuterol Sulfate 3 Ml Ampul.[facility] 07/28/22 15:51 3 ml Q6HRT KEVIN Administration Aspirin 81 mg 06/29/22 10:00 06/30/22 09:05 Aspirin 81 Mg Tablet.Ec PO 07/29/22 09:59 81 mg DAILY KEVIN Administration Clotrimazole 0 gm 06/28/22 19:00 06/29/22 22:22 Clotrimazole 30 Gm Cream TP 07/28/22 18:59 30 gm BID KEVIN Administration Methylprednisolone Sodium 0 mg 06/30/22 18:00 Succinate 60 mg/ Sterile Water IV 07/30/22 17:59 2 ml Q12H KEVIN Enoxaparin Sodium 40 mg 06/28/22 17:00 06/30/22 09:05 Enoxaparin Sodium 40 Mg/0.4 Ml Syringe SQ 07/28/22 16:59 40 mg DAILY KEVIN Administration Furosemide 40 mg 06/29/22 10:00 06/30/22 09:05 Furosemide 40 Mg Tablet PO 07/29/22 09:59 40 mg DAILY KEVIN Administration Azithromycin 500 mg in 250 mls @ 250 mls/hr 06/29/22 10:00 06/30/22 09:13 Zithromax 500 Mg/ 250 Ml Nacl Premix IV 07/29/22 09:59 250 mls/hr Q24H10 KEVIN Administration Ceftriaxone Sodium/Dextrose 2 g in 50 mls @ 100 mls/hr 06/29/22 10:00 06/30/22 09:05 Rocephin 2 Gm-D5w 50ml Bag IV 07/02/22 09:59 100 mls/hr Q24H10 KEVIN Administration Insulin Human Lispro 0 unit 06/28/22 15:52 Insulin Lispro 1 Unit SQ 07/28/22 15:51 UD PRN HYPERGLYCEMIA Levothyroxine Sodium 150 mcg 06/29/22 10:00 06/30/22 09:05 Levothyroxine Sodium 150 Mcg Tablet PO 07/29/22 09:59 150 mcg DAILY KEVIN Administration Levothyroxine Sodium 25 mcg 06/29/22 10:00 06/30/22 09:05 Levothyroxine Sodium 25 Mcg Tablet PO 07/29/22 09:59 25 mcg DAILY KEVIN Administration Lisinopril 10 mg 06/28/22 22:00 06/30/22 09:05 Lisinopril 10 Mg Tablet PO 07/28/22 21:59 10 mg BID KEVIN Administration Metoprolol Tartrate 50 mg 06/28/22 22:00 06/30/22 09:05 Metoprolol Tartrate 50 Mg Tablet PO 07/28/22 21:59 50 mg BID KEVIN Administration Morphine Sulfate 2 mg 06/28/22 15:52 Morphine Sulfate 2 Mg/Ml Inj IV 07/03/22 15:51 Q4H PRN PRN PAIN Ondansetron HCl 4 mg 06/28/22 15:52 Ondansetron Hcl 4 Mg/2 Ml Vial IV 07/28/22 15:51 Q6H PRN PRN NAUSEA/VOMITING Pantoprazole Sodium 40 mg 06/29/22 10:00 06/30/22 09:05 Protonix (Pantoprazole) 40 Mg Tablet PO 07/29/22 09:59 40 mg DAILY KEVIN Administration Potassium Chloride 10 meq 06/29/22 10:00 06/30/22 09:05 Potassium Chloride Tab 10 Meq Tab PO 07/29/22 09:59 10 meq DAILY KEVIN Administration Simvastatin 40 mg 06/28/22 22:00 06/29/22 22:15 Simvastatin 20 Mg Tablet PO 07/28/22 21:59 40 mg HS KEVIN Administration Discontinued Medications Generic Name Dose Route Start Last Admin Trade Name Freq PRN Reason Stop Dose Admin Hydrocodone Bitart/Acetaminophen 1 tab 06/28/22 22:00 06/28/22 22:59 Hydrocodone /Apap 7.5/325 Mg 1 Each Tablet PO 07/03/22 21:59 1 tab QID KEVIN Administration Albuterol/Ipratropium 3 ml 06/28/22 10:43 06/28/22 10:55 Ipratropium/Albuterol Sulfate 3 Ml Ampul.Neb IH 06/28/22 10:44 3 ml STAT ONE Administration Albuterol/Ipratropium Confirm 06/28/22 10:51 Ipratropium/Albuterol Sulfate 3 Ml Ampul.Neb Administered 06/28/22 10:52 Dose 3 ml IH .STK-MED ONE Albuterol/Ipratropium Confirm 06/29/22 05:45 Ipratropium/Albuterol Sulfate 3 Ml Ampul.Neb Administered 06/29/22 05:46 Dose 3 ml IH .STK-MED ONE Aspirin 324 mg 06/28/22 12:37 06/28/22 12:57 Aspirin 81 Mg Tab.Chew PO 06/28/22 12:38 324 mg STAT ONE Administration Aspirin Confirm 06/28/22 12:55 Aspirin 81 Mg Tab.Chew Administered 06/28/22 12:56 Dose 324 mg .ROUTE .STK-MED ONE Clotrimazole 30 gm 06/28/22 18:53 06/28/22 19:01 Clotrimazole 30 Gm Cream TP 06/28/22 18:54 Not Given STAT ONE Methylprednisolone Sodium 0 mg 06/28/22 10:43 06/28/22 11:12 Succinate 125 mg/ Sterile IV 06/28/22 10:44 125 mg Water 2 ml STAT ONE Administration Methylprednisolone Sodium 0 mg 06/28/22 18:00 06/30/22 06:38 Succinate 60 mg/ Sterile Water IV 07/28/22 17:59 60 mg 2 ml Q6HT KEVIN Administration Azithromycin 500 mg in 250 mls @ 250 mls/hr 06/28/22 12:15 06/28/22 13:59 Zithromax 500 Mg/ 250 Ml Nacl Premix IV 06/28/22 13:14 Infused STAT STA Infusion Ceftriaxone Sodium/Dextrose 2 g in 50 mls @ 100 mls/hr 06/28/22 12:15 06/28/22 12:50 Rocephin 2 Gm-D5w 50ml Bag IV 06/28/22 12:44 Infused STAT STA Infusion Ceftriaxone Sodium/Dextrose Confirm 06/28/22 12:18 Rocephin 2 Gm-D5w 50ml Bag Administered 06/28/22 12:19 Dose 2 g in 50 mls @ ud IV .STK-MED ONE Azithromycin Confirm 06/28/22 12:56 Zithromax 500 Mg/ 250 Ml Nacl Premix Administered 06/28/22 12:57 Dose 500 mg in 250 mls @ ud IV .STK-MED ONE Methylprednisolone Sodium Succinate Confirm 06/28/22 11:09 Methylprednis Sod Succ 125 Mg/2 Ml Vial Administered 06/28/22 11:10 Dose 125 mg .ROUTE .STK-MED ONE Methylprednisolone Sodium Succinate Confirm 06/29/22 16:57 Methylprednis Sod Succ 125 Mg/2 Ml Vial Administered 06/29/22 16:58 Dose 125 mg .ROUTE .STK-MED ONE Methylprednisolone Sodium Succinate Confirm 06/30/22 00:05 Methylprednis Sod Succ 125 Mg/2 Ml Vial Administered 06/30/22 00:06 Dose 125 mg .ROUTE .STK-MED ONE Methylprednisolone Sodium Succinate Confirm 06/30/22 06:20 Methylprednis Sod Succ 125 Mg/2 Ml Vial Administered 06/30/22 06:21 Dose 125 mg .ROUTE .STK-MED ONE Oseltamivir Phosphate 75 mg 06/28/22 12:23 06/28/22 12:52 Oseltamivir 75 Mg Cap PO 06/28/22 12:24 Not Given STAT ONE Oseltamivir Phosphate 75 mg 06/28/22 22:00 Oseltamivir 75 Mg Cap PO 07/03/22 21:59 BID KEVIN Pantoprazole Sodium 40 mg 06/28/22 17:00 06/28/22 18:41 Pantoprazole 40 Mg Vial IV 07/28/22 16:59 40 mg Q24H10 KEVIN Administration Sterile Water Confirm 06/28/22 11:09 Water For Injection,Sterile 10 Ml Vial Administered 06/28/22 11:10 Dose 10 ml IJ .STK-MED ONE Intake & Output (Last 24 hours) 06/27/22 06/28/22 06/29/22 06/30/22 11:59 11:59 11:59 11:59 Intake Total 1100 1900 Balance 1100 1900 Weight 113.852 kg 109.2 kg 111.7 kg Laboratory Results (Last 24 hours) 06/30/22 08:14 WBC 31.8 H* RBC 4.26 Hgb 12.4 Hct 42.7 MCV 100.2 H MCH 29.1 MCHC 29.0 L RDW 14.6 H Plt Count 457 H MPV 10.2 Orders (Last 24 hours) Category Date Time Status CBC Routine Lab 06/30/22 08:14 Results CMP Routine Lab 06/30/22 08:14 Received Pathologist Review Routine Lab 06/30/22 08:14 Results Aspirin EC 81 mg [Ecotrin 81 mg] Med 06/29/22 10:00 Active 81 mg PO DAILY Azithromycin 500 mg/250 ml [Zithromax 500 MG/ 250 ML Med 06/29/22 10:00 Active NaCl Premix] 500 mg in 250 ml IV Q24H10 Ceftriaxone 2 GM/50 ML PREMIX* [ROCEPHIN 2 Gm-D5w 50ML Med 06/29/22 10:00 Active BAG] 2 g in 50 ml IV Q24H10 Furosemide 40 mg [Lasix 40 MG] Med 06/29/22 10:00 Active 40 mg PO DAILY Levothyroxine Sodium 150 Mcg [Synthroid 150 Mcg] Med 06/29/22 10:00 Active 150 mcg PO DAILY Levothyroxine Sodium 25 Mcg [Synthroid 25 Mcg] Med 06/29/22 10:00 Active 25 mcg PO DAILY Methylprednis Sod Succ 125 mg* [solu-MEDROL] Med 06/29/22 16:57 Discontinued 125 mg .ROUTE .STK-MED ONE Methylprednis Sod Succ 125 mg* [solu-MEDROL] Med 06/30/22 00:05 Discontinued 125 mg .ROUTE .STK-MED ONE Methylprednis Sod Succ 125 mg* [solu-MEDROL] Med 06/30/22 06:20 Discontinued 125 mg .ROUTE .STK-MED ONE Methylprednis Sod Succ 125 mg* [solu-MEDROL] 60 mg Med 06/30/22 18:00 Active Water For Injection,Sterile [Sterile H2O 10 ml] 2 ml IV Q12H PANTOPRAZOLE 40 mg Tablet [Protonix 40MG Tablet] Med 06/29/22 10:00 Active 40 mg PO DAILY Potassium Chloride Tab* [Klor Con] Med 06/29/22 10:00 Active 10 meq PO DAILY Patient Care Notes (Last 24 hours) 06/30/22 09:24 Nursing Note by Jillian Sylvester CALLED AND REPORTED WBC 31.[address] BRASWELL AT THIS TIME. REC. ORDER TO CHANGE FREQUENCY OF SOLU MEDROL TO Q 12 HRS. Initialized on 06/30/22 09:24 - END OF NOTE 06/29/22 13:06 Case Management Note by Shavonne Allen AFTER TALKING DEPUTY- PATIENT STATES SHE WILL HAVE TO START EVICTION PROCESS AT THE COURT HOUSE. SHE REPORTS SHE DOES NOT HAVE THE MONEY FOR IT AT THIS TIME. NIECE PRESENT AND SUPPORTIVE- STATED SHE WOULD HELP PATIENT TRY TO GET THE MONEY AND HELP WITH PROCESS. PATIENT REPORTS SHE STILL WANTS TO RETURN HOME AT THIS TIME WITH DAUGHTER STILL LIVING THERE. Initialized on 06/29/22 13:06 - END OF NOTE 06/29/22 11:42 Case Management Note by Shavonne Allen PATIENT ON PHONE WITH DEPUTDiandra ENGEL AT THIS TIME Initialized on 06/29/22 11:42 - END OF NOTE 06/29/22 10:34 Case Management Note by Shavonne Allen PATIENT REPORTS SHE IS INDEPENDENT AT HOME MAINLY D/T NO ONE WILLING TO HELP HER AT HOME. PATIENT HAS MEDICAID PLAN. REFERRAL SENT TO [facility] TO SEE IF SHE WOULD QUALIFY FOR ANY SSN/SSBN ASSISTANT NAVIGATOR/HOMEMAKER ASSISTANCE AT HOME. SHE REPORTS HER DAUGHTER IS VERBALLY ABUSIVE TO HER. SHE REPORTS SHE HAS NOT YET BEEN PHYSICAL WITH HER BUT COULD SEE HER BEING PHYSICAL IN THE FUTURE. SHE REPORTS SHE HAS AGGRESSIVELY POINTED HER FINGER IN HER FACE WHILE SCREAMING MA OFANITIES AT HER. SHE REPORTS HER DAUGHTERS LIVES WITH HER AND SHE OWNS THE HOME AND PAYS THE BILLS. SHE WANTS DAUGHTER TO MOVE OUT. PATIENT WAS OFFERED A REHAB STAY OR [facility] [place]- SHE REFUSED. SHE WANTS TO RETURN HOME EVEN WITH HER DAUGHTER AT TIME OF [place]. SHE REPORTS SHE HAS A PHONE AND CAN CALL FOR HELP IF NEEDED. PATIENT A&O- ANSWERING QUESTIONS AND FOLLOWING CONVERSATION APPROPRIATELY. THIS HAND CANDLE DIPPER OFFERED TO CALL THE POLICE FOR THE PATIENT SO SHE COULD GET THE STEPS ON HOW TO EVICT THE DAUGHTER. PATIENT AGREEABLE TO THIS. SHE REQUESTED THEM TO PHYSICALLY COME IN TO [facility] TO TALK WITH HER. CALLED [facility] AND REQUESTED OFFICER- THEY STATED THEY WOULD SEND SOMEONE IN TO S/W PATIENT. PATIENT NOTIFIED. APS REPORT MADE WELL VIA EMAIL- COPY OF EMAIL PLACED IN CHART Initialized on 06/29/22 10:34 - END OF NOTE Code(s): J18.9 - PNEUMONIA, UNSPECIFIED ORGANISM (2) Type 2 MD (myocardial infarction) Current Visit: Yes Status: Acute Code(s): I21.A1 - MYOCARDIAL INFARCTION TYPE 2 (3) Non-ST elevation MD (NSTEMI) Current Visit: Yes Status: Resolved Code(s): I21.4 - NON-ST ELEVATION (NSTEMI) MYOCARDIAL INFARCTION (4) Respiratory failure Current Visit: Yes Status: Acute Qualifiers: Chronicity: acute Respiratory failure complication: hypoxia Qualified Code(s): J96.01 - Acute respiratory failure with hypoxia Code(s): J96.90 - RESPIRATORY FAILURE, UNSP, UNSP W HYPOXIA OR HYPERCAPNIA
--- NOTE | 2022-06-30 10:25 | PCM.NOTE ---
Date and Time: 06/30/22 1023 Subjective Assessment: felling much better. last 24 hours events noted. - Review of Systems Constitutional: No Fever, No Chills Eyes: No Symptoms Ears, Nose, & Throat: No Symptoms Respiratory: Orthopnea, Short Of Breath, Wheezing, No Cough Cardiac: No Chest Pain, No Edema, No Syncope Abdominal/Gastrointestinal: No Abdominal Pain, No Nausea, No Vomiting, No Diarrh ea Genitourinary Symptoms: No Dysuria Musculoskeletal: No Back Pain, No Neck Pain Skin: No Rash Neurological: No Dizziness, No Focal Weakness, No Sensory Changes Psychological: No Symptoms Endocrine: No Symptoms Hematologic/Lymphatic: No Symptoms Immunological/Allergic: No Symptoms Objective Exam General Appearance: no apparent distress, alert Neurologic Exam: alert, oriented x 3, cooperative, normal mood/affect, nml cerebellar function, sensation nml, No motor deficits Skin Exam: normal color, warm, dry Eye Exam: PERRL, EOMI, eyes nml inspection Ears, Nose, Throat Exam: normal ENT inspection, pharynx normal, moist mucous membranes Neck Exam: normal inspection, non-tender, supple, full range of motion Respiratory Exam: diminished breath sounds, No respiratory distress Cardiovascular Exam: regular rate/rhythm, normal heart sounds Gastrointestinal/Abdomen Exam: soft, No tenderness, No mass Extremity Exam: normal inspection, normal range of motion Back Exam: normal inspection, normal range of motion, No CVA tenderness, No vertebral tenderness Pelvic Exam: deferred Rectal Exam: deferred OBJECTIVE DATA Vital Signs: Vital Signs - 24 hr Temp Pulse Resp BP Pulse Ox 06/30/22 07:54 97.5 F 96 H 28 H 174/77 91 L 06/30/22 07:26 94 L 06/30/22 07:02 95 H 18 92 L 06/30/22 03:40 98.1 F 112 H 21 125/60 94 L 06/30/22 01:22 88 22 94 L 06/29/22 23:37 97.3 F 109 H 17 114/56 94 L 06/29/22 20:00 97.8 F 103 H 20 122/58 93 L 06/29/22 19:26 102 H 22 91 L 06/29/22 16:00 98.7 F 102 H 22 120/57 92 L 06/29/22 13:19 98 H 22 91 L 06/29/22 11:11 97.8 F 108 H 21 119/58 89 L Pain Assessment - Last Documented Pain Intensity 0 Pain Scale Used FLACC Intake and Output: Intake & Output 06/27/22 06/28/22 06/29/22 06/30/22 11:59 11:59 11:59 11:59 Intake Total 1100 1900 Balance 1100 1900 Weight 113.852 kg 109.2 kg 111.7 kg Lab Results: Lab Results-Last 24 Hours 06/30/22 Range/Units 08:14 WBC 31.8 H* (4.0-10.5) x10^3/uL RBC 4.26 (4.1-5.4) x10^6/uL Hgb 12.4 (12.0-16.0) g/dL Hct 42.7 (35-47) % MCV 100.2 H (78-100) fL MCH 29.1 (26-32) pg MCHC 29.0 L (32-36) g/dL RDW 14.6 H (11.5-14.0) % Plt Count 457 H (150-450) x10^3/uL MPV 10.2 (7.5-11.0) fL Smear Path Review Pending Radiology Exams: Radiology Procedures Category Date Time Status CHEST 1 VIEW (PORTABLE) Stat Exams 06/28/22 11:50 Completed CHEST WITH CONTRAST [CT] Stat Exams 06/28/22 12:53 Completed Multi-Disciplinary Progress Notes: Multi-Disciplinary Progress Notes 06/29/22 13:06 Case Management Note by Shavonne Allen AFTER TALKING DEPUTY- PATIENT STATES SHE WILL HAVE TO START EVICTION PROCESS AT THE COURT HOUSE. SHE REPORTS SHE DOES NOT HAVE THE MONEY FOR IT AT THIS TIME. NIECE PRESENT AND SUPPORTIVE- STATED SHE WOULD HELP PATIENT TRY TO GET THE MONEY AND HELP WITH PROCESS. PATIENT REPORTS SHE STILL WANTS TO RETURN HOME AT THIS TIME WITH DAUGHTER STILL LIVING THERE. Initialized on 06/29/22 13:06 - END OF NOTE 06/29/22 11:42 Case Management Note by Shavonne Allen PATIENT ON PHONE WITH DEPUTDiandra ENGEL AT THIS TIME Initialized on 06/29/22 11:42 - END OF NOTE 06/29/22 10:34 Case Management Note by Shavonne Allen PATIENT REPORTS SHE IS INDEPENDENT AT HOME MAINLY D/T NO ONE WILLING TO HELP HER AT HOME. PATIENT HAS MEDICAID PLAN. 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 SHE REPORTS HER DAUGHTER IS VERBALLY ABUSIVE TO HER. SHE REPORTS SHE HAS NOT YET BEEN PHYSICAL WITH HER BUT COULD SEE HER BEING PHYSICAL IN THE FUTURE. SHE REPORTS SHE HAS AGGRESSIVELY POINTED HER FINGER IN HER FACE WHILE SCREAMING PRO FANITIES AT HER. SHE REPORTS HER DAUGHTERS LIVES WITH HER AND SHE OWNS THE HOME AND PAYS THE BILLS. SHE WANTS DAUGHTER TO MOVE OUT. PATIENT WAS OFFERED A REHAB STAY OR JAIL AT [place]- SHE REFUSED. SHE WANTS TO RETURN HOME EVEN WITH HER DAUGHTER AT TIME OF [place]. SHE REPORTS SHE HAS A PHONE AND CAN CALL FOR HELP IF NEEDED. PATIENT A&O- ANSWERING QUESTIONS AND FOLLOWING CONVERSATION APPROPRIATELY. THIS PHOTORESIST PRINTER OFFERED TO CALL THE POLICE FOR THE PATIENT SO SHE COULD GET THE STEPS ON HOW TO EVICT THE DAUGHTER. PATIENT AGREEABLE TO THIS. SHE REQUESTED THEM TO PHYSICALLY COME IN TO [facility] TO TALK WITH HER. CALLED [facility] AND REQUESTED OFFICER- THEY STATED THEY WOULD SEND SOMEONE IN TO S/W PATIENT. PATIENT NOTIFIED. APS REPORT MADE WELL VIA EMAIL- COPY OF EMAIL PLACED IN CHART Initialized on 06/29/22 10:34 - END OF NOTE Assessment/Plan (1) Pneumonia Current Visit: Yes Status: Acute Qualifiers: Pneumonia type: due to unspecified organism Laterality: bilateral Lung location: unspecified part of lung Qualified Code(s): J18.9 - Pneumonia, unspecified organism Assessment & Plan: Last Vital Signs Temp 97.5 F 06/30/22 07:54 Pulse 96 H 06/30/22 07:54 Resp 28 H 06/30/22 07:54 BP 174/77 06/30/22 07:54 Pulse Ox 91 L 06/30/22 07:54 Allergies sulfamethoxazole [From Bactrim] Allergy (Verified 06/28/22 10:28) trimethoprim [From Bactrim] Allergy (Verified 06/28/22 10:28) Active Medications Acetaminophen (Acetaminophen 325 Mg Tablet) 650 mg PO Q4H PRN PRN PRN Reason: PAIN AND/OR FEVER Stop: 07/28/22 15:51 Hydrocodone Bitart/Acetaminophen (Hydrocodone /Apap 7.5/325 Mg 1 Each Tablet) 1 tab PO QID PRN PRN PRN Reason: PAIN Stop: 07/04/22 08:59 Last Admin: 06/29/22 22:14 Dose: 1 tab Albuterol Sulfate (Albuterol Sulfate 2.5 Mg/3 Ml Neb) 2.5 mg IH Q4HPRN PRN PRN Reason: SHORTNESS OF BREATH Stop: 07/29/22 07:14 Albuterol/Ipratropium (Ipratropium/Albuterol Sulfate 3 Ml Ampul.Neb) 3 ml IH Q6HRT [facility] Stop: 07/28/22 15:51 Last Admin: 06/30/22 07:00 Dose: 3 ml Aspirin (Aspirin 81 Mg Tablet.Ec) 81 mg PO DAILY [facility] Stop: 07/29/22 09:59 Last Admin: 06/30/22 09:05 Dose: 81 mg Clotrimazole (Clotrimazole 30 Gm Cream) 0 gm TP BID [facility] Stop: 07/28/22 18:59 Last Admin: 06/29/22 22:22 Dose: 30 gm Methylprednisolone Sodium Succinate 60 mg/ Sterile Water 2 ml 0 mg IV Q12H [facility] Stop: 07/30/22 17:59 Enoxaparin Sodium (Enoxaparin Sodium 40 Mg/0.4 Ml Syringe) 40 mg SQ DAILY [facility] Stop: 07/28/22 16:59 Last Admin: 06/30/22 09:05 Dose: 40 mg Furosemide (Furosemide 40 Mg Tablet) 40 mg PO DAILY [facility] Stop: 07/29/22 09:59 Last Admin: 06/30/22 09:05 Dose: 40 mg Azithromycin (Zithromax 500 Mg/ 250 Ml Nacl Premix) 500 mg in 250 mls @ 250 mls /hr IV Q24H10 [facility] Stop: 07/29/22 09:59 Last Admin: 06/30/22 09:13 Dose: 250 mls/hr Ceftriaxone Sodium/Dextrose (Rocephin 2 Gm-D5w 50ml Bag) 2 g in 50 mls @ 100 mls/hr IV Q24H10 [facility] Stop: 07/02/22 09:59 Last Admin: 06/30/22 09:05 Dose: 100 mls/hr Insulin Human Lispro (Insulin Lispro 1 Unit) 0 unit SQ UD PRN PRN Reason: HYPERGLYCEMIA Stop: 07/28/22 15:51 Levothyroxine Sodium (Levothyroxine Sodium 150 Mcg Tablet) 150 mcg PO DAILY [facility] Stop: 07/29/22 09:59 Last Admin: 06/30/22 09:05 Dose: 150 mcg Levothyroxine Sodium (Levothyroxine Sodium 25 Mcg Tablet) 25 mcg PO DAILY [facility] Stop: 07/29/22 09:59 Last Admin: 06/30/22 09:05 Dose: 25 mcg Lisinopril (Lisinopril 10 Mg Tablet) 10 mg PO BID KEVIN Stop: 07/28/22 21:59 Last Admin: 06/30/22 09:05 Dose: 10 mg Metoprolol Tartrate (Metoprolol Tartrate 50 Mg Tablet) 50 mg PO BID KEVIN Stop: 07/28/22 21:59 Last Admin: 06/30/22 09:05 Dose: 50 mg Morphine Sulfate (Morphine Sulfate 2 Mg/Ml Inj) 2 mg IV Q4H PRN PRN PRN Reason: PAIN Stop: 07/03/22 15:51 Ondansetron HCl (Ondansetron Hcl 4 Mg/2 Ml Vial) 4 mg IV Q6H PRN PRN PRN Reason: NAUSEA/VOMITING Stop: 07/28/22 15:51 Pantoprazole Sodium (Protonix (Pantoprazole) 40 Mg Tablet) 40 mg PO DAILY KEVIN Stop: 07/29/22 09:59 Last Admin: 06/30/22 09:05 Dose: 40 mg Potassium Chloride (Potassium Chloride Tab 10 Meq Tab) 10 meq PO DAILY [facility] Stop: 07/29/22 09:59 Last Admin: 06/30/22 09:05 Dose: 10 meq Simvastatin (Simvastatin 20 Mg Tablet) 40 mg PO HS [facility] Stop: 07/28/22 21:59 Last Admin: 06/29/22 22:15 Dose: 40 mg Intake & Output 06/29/22 06/30/22 11:59 11:59 Intake Total 1100 1900 Balance 1100 1900 Weight 109.2 kg 111.7 kg Orders 06/29/22 10:00 Aspirin EC 81 mg [Ecotrin 81 mg] 81 mg PO DAILY Furosemide 40 mg [Lasix 40 MG] 40 mg PO DAILY Levothyroxine Sodium 150 Mcg [Synthroid 150 Mcg] 150 mcg PO DAILY Levothyroxine Sodium 25 Mcg [Synthroid 25 Mcg] 25 mcg PO DAILY PANTOPRAZOLE 40 mg Tablet [Protonix 40MG Tablet] 40 mg PO DAILY Potassium Chloride Tab* [Klor Con] 10 meq PO DAILY 06/30/22 08:14 CBC Routine CMP Routine Pathologist Review Routine 06/30/22 18:00 Methylprednis Sod Succ 125 mg* [solu-MEDROL] 60 mg Water For Injection,Sterile [Sterile H2O 10 ml] 2 ml IV Q12H Lab Tests 06/30/22 08:14 WBC 31.8 H* RBC 4.26 Hgb 12.4 Hct 42.7 MCV 100.2 H MCH 29.1 MCHC 29.0 L RDW 14.6 H Plt Count 457 H MPV 10.2 Smear Path Review Pending Code(s): J18.9 - PNEUMONIA, UNSPECIFIED ORGANISM (2) Type 2 MN (myocardial infarction) Current Visit: Yes Status: Acute Code(s): I21.A1 - MYOCARDIAL INFARCTION TYPE 2 (3) Non-ST elevation MN (NSTEMI) Current Visit: Yes Status: Resolved Code(s): I21.4 - NON-ST ELEVATION (NSTEMI) MYOCARDIAL INFARCTION (4) Respiratory failure Current Visit: Yes Status: Acute Qualifiers: Chronicity: acute Respiratory failure complication: hypoxia Qualified Code(s): J96.01 - Acute respiratory failure with hypoxia Code(s): J96.90 - RESPIRATORY FAILURE, UNSP, UNSP W HYPOXIA OR HYPERCAPNIA
[2022-06-30] MEDS: LOTRIMIN CREAM 30 GM TP SCH ×2 (11:10→22:00)
[2022-06-30 11:34] LABS: Slide Review YES
[2022-06-30 11:53] LABS: ALBUMIN 3.7 g/dL (3.5-5.0); ALKALINE PHOSPHATASE 107 U/L (38-126); BLOOD UREA NITROGEN 40 mg/dL (7-17); CHLORIDE 105 mmol/L (98-107); Calcium 8.7 mg/dL (8.4-10.2); Carbon Dioxide 31 mmol/L (22-30); Creatinine 1 0.96 mg/dL (0.52-1.04); EST GLOMERULAR FILTRATION RATE > 60.0 ML/MIN; Glucose 182 mg/dL (74-106); Potassium 3.5 mmol/L (3.5-5.1); SGOT/AST 30 U/L (14-36); SGPT/ALT 30 U/L (0-35); SODIUM 143 mmol/L (137-145); Total Protein 7.6 g/dL (6.3-8.2)
[2022-06-30] MEDS: ZOCOR 20MG PO SCH (21:22)
[2022-06-30] MEDS: NORCO 7.5/325 MG TAB PO PRN (21:22)
[2022-07-01] MEDS: DUONEB 0.5-3 MG/3 ml Neb IH SCH ×4 (01:16→18:43)
[2022-07-01] MEDS: Zestril 10 MG PO SCH ×3 (06:08→20:41)
[2022-07-01] MEDS: Lopressor 50 MG PO SCH ×3 (06:08→20:41)
[2022-07-01] MEDS: solu-MEDROL 60 MG, Sterile H2O 10 ml 2 ML IV SCH ×4 (06:10→18:46)
[2022-07-01 06:26] LABS: Hematocrit 40.4 % (35-47); Mean Cell Volume 98.8 fL (78-100); Mean Corpuscular Hemoglobin 29.3 pg (26-32); Mean Corpuscular Hgb Concent. 29.7 g/dL (32-36); Mean Platelet Volume 10.2 fL (7.5-11.0); Platelet Count 479 x10^3/uL (150-450); Red Blood Count 4.09 x10^6/uL (4.1-5.4); Red Cell Distribution Width 14.8 % (11.5-14.0)
[2022-07-01 06:33] LABS: White Blood Count 25.4 x10^3/uL (4.0-10.5)
[2022-07-01 06:37] LABS: ALBUMIN 3.4 g/dL (3.5-5.0); ALKALINE PHOSPHATASE 89 U/L (38-126); ANION GAP 8.6 MEQ/L (5-15); BLOOD UREA NITROGEN 35 mg/dL (7-17); CHLORIDE 107 mmol/L (98-107); Calcium 8.4 mg/dL (8.4-10.2); Carbon Dioxide 31 mmol/L (22-30); Creatinine 1 0.72 mg/dL (0.52-1.04); EST GLOMERULAR FILTRATION RATE > 60.0 ML/MIN; Glucose 193 mg/dL (74-106); Potassium 4.1 mmol/L (3.5-5.1); SGOT/AST 24 U/L (14-36); SGPT/ALT 29 U/L (0-35); SODIUM 142 mmol/L (137-145); Total Protein 6.9 g/dL (6.3-8.2)
--- NOTE | 2022-07-01 07:48 | PCM.NOTE ---
Date and Time: 07/01/22746 Subjective Assessment: doing much better, last 24 hours events noted - Review of Systems Constitutional: No Fever, No Chills Eyes: No Symptoms Ears, Nose, & Throat: No Symptoms Respiratory: Cough, Orthopnea, Short Of Breath, Wheezing Cardiac: No Chest Pain, No Edema, No Syncope Abdominal/Gastrointestinal: No Abdominal Pain, No Nausea, No Vomiting, No Diarrhea Genitourinary Symptoms: No Dysuria Musculoskeletal: No Back Pain, No Neck Pain Skin: No Rash Neurological: No Dizziness, No Focal Weakness, No Sensory Changes Psychological: No Symptoms Endocrine: No Symptoms Hematologic/Lymphatic: No Symptoms Immunological/Allergic: No Symptoms Objective Exam General Appearance: no apparent distress, alert Neurologic Exam: alert, oriented x 3, cooperative, normal mood/affect, nml cerebellar function, sensation nml, No motor deficits Skin Exam: normal color, warm, dry Eye Exam: PERRL, EOMI, eyes nml inspection Ears, Nose, Throat Exam: normal ENT inspection, pharynx normal, moist mucous membranes Neck Exam: normal inspection, non-tender, supple, full range of motion Respiratory Exam: diminished breath sounds, crackles/rales, rhonchi, wheezing, No respiratory distress Cardiovascular Exam: regular rate/rhythm, normal heart sounds Gastrointestinal/Abdomen Exam: soft, No tenderness, No mass Extremity Exam: normal inspection, normal range of motion Back Exam: normal inspection, normal range of motion, No CVA tenderness, No vertebral tenderness Pelvic Exam: deferred Rectal Exam: deferred OBJECTIVE DATA Vital Signs: Vital Signs - 24 hr Temp Pulse Resp BP Pulse Ox 07/01/22 06:47 109 H 22 93 L 07/01/22 03:55 97.1 F 119 H 20 167/76 91 L 07/01/22 01:16 80 15 91 L 06/30/22 23:40 97.9 F 104 H 18 135/61 91 L 06/30/22 19:35 97.8 F 115 H 17 127/59 99 06/30/22 17:49 101 H 18 94 L 06/30/22 16:00 97.9 F 106 H 22 126/62 92 L 06/30/22 13:03 94 H 20 91 L 06/30/22 11:36 97.6 F 78 18 155/66 94 L 06/30/22 10:48 93 L 06/30/22 07:54 97.5 F 96 H 28 H 174/77 91 L Pain Assessment - Last Documented Pain Intensity 0 Pain Scale Used [facility] Intake and Output: Intake & Output 06/28/22 06/29/22 06/30/22 07/01/22 11:59 11:59 11:59 11:59 Intake Total 1100 1900 1630 Output Total 1 Balance 1100 1899 1630 Weight 113.852 kg 109.2 kg 111.7 kg Lab Results: Lab Results-Last 24 Hours 06/28/22 06/30/22 06/30/22 Range/Units 11:10 08:14 08:14 WBC 31.8 H* (4.0-10.5) x10^3/uL RBC 4.26 (4.1-5.4) x10^6/uL Hgb 12.4 (12.0-16.0) g/dL Hct 42.7 (35-47) % MCV 100.2 H (78-100) fL MCH 29.1 (26-32) pg MCHC 29.0 L (32-36) g/dL RDW 14.6 H (11.5-14.0) % Plt Count 457 H (150-450) x10^3/uL MPV 10.2 (7.5-11.0) fL Smear Path Review Pending Sodium 143 (137-145) mmol/L Potassium 3.5 (3.5-5.1) mmol/L Chloride 105 (98-107) mmol/L Carbon Dioxide 31 H (22-30) mmol/L Anion Gap 11.0 (5-15) MEQ/L BUN 40 H (7-17) mg/dL Creatinine 0.96 (0.52-1.04) mg/dL Estimated GFR > 60.0 ML/MIN Glucose 182 H (74-106) mg/dL Calcium 8.7 (8.4-10.2) mg/dL Total Bilirubin 0.20 (0.2-1.3) mg/dL AST 30 (14-36) U/L ALT 30 (0-35) U/L Alkaline Phosphatase 107 (38-126) U/L Serum Total Protein 7.6 (6.3-8.2) g/dL Albumin 3.7 (3.5-5.0) g/dL T3 Uptake 37 (24-39) % Slides for Path Review YES 07/01/22 07/01/22 Range/Units 05:35 05:35 WBC 25.4 H* (4.0-10.5) x10^3/uL RBC 4.09 L (4.1-5.4) x10^6/uL Hgb 12.0 (12.0-16.0) g/dL Hct 40.4 (35-47) % MCV 98.8 (78-100) fL MCH 29.3 (26-32) pg MCHC 29.7 L (32-36) g/dL RDW 14.8 H (11.5-14.0) % Plt Count 479 H (150-450) x10^3/uL MPV 10.2 (7.5-11.0) fL Smear Path Review Sodium 142 (137-145) mmol/L Potassium 4.1 (3.5-5.1) mmol/L Chloride 107 (98-107) mmol/L Carbon Dioxide 31 H (22-30) mmol/L Anion Gap 8.6 (5-15) MEQ/L BUN 35 H (7-17) mg/dL Creatinine 0.72 (0.52-1.04) mg/dL Estimated GFR > 60.0 ML/MIN Glucose 193 H (74-106) mg/dL Calcium 8.4 (8.4-10.2) mg/dL Total Bilirubin 0.20 (0.2-1.3) mg/dL AST 24 (14-36) U/L ALT 29 (0-35) U/L Alkaline Phosphatase 89 (38-126) U/L Serum Total Protein 6.9 (6.3-8.2) g/dL Albumin 3.4 L (3.5-5.0) g/dL T3 Uptake (24-39) % Slides for Path Review Multi-Disciplinary Progress Notes: Multi-Disciplinary Progress Notes 07/01/22 07:42 Respiratory Note by Nadeen Lara PT'S O2 SAT ON ROOM AIR WHILE AT REST WAS 86%. PT WAS PLACED BACK ON 2LPM AND O2 SAT INCREASED TO 93%. Initialized on 07/01/22 07:42 - END OF NOTE Assessment/Plan (1) Pneumonia Current Visit: Yes Status: Acute Qualifiers: Pneumonia type: due to unspecified organism Laterality: bilateral Lung location: unspecified part of lung Qualified Code(s): J18.9 - Pneumonia, unspecified organism Code(s): J18.9 - PNEUMONIA, UNSPECIFIED ORGANISM (2) Type 2 DE (myocardial infarction) Current Visit: Yes Status: Acute Code(s): I21.A1 - MYOCARDIAL INFARCTION TYPE 2 (3) Non-ST elevation DE (NSTEMI) Current Visit: Yes Status: Resolved Code(s): I21.4 - NON-ST ELEVATION (NSTEMI) MYOCARDIAL INFARCTION (4) Respiratory failure Current Visit: Yes Status: Acute Qualifiers: Chronicity: acute Respiratory failure complication: hypoxia Qualified Code(s): J96.01 - Acute respiratory failure with hypoxia Code(s): J96.90 - RESPIRATORY FAILURE, UNSP, UNSP W HYPOXIA OR HYPERCAPNIA
[2022-07-01] MEDS: Advair Hfa 115/21 Common canister IH SCH ×2 (08:10→18:53)
[2022-07-01] MEDS: Protonix 40MG Tablet PO SCH (08:21)
[2022-07-01] MEDS: SYNTHROID 150 MCG PO SCH (08:21)
[2022-07-01] MEDS: SYNTHROID 25 MCG PO SCH (08:21)
[2022-07-01] MEDS: ECOTRIN 81 MG PO SCH (08:21)
[2022-07-01] MEDS: ENOXAPARIN SODIUM SQ SCH (08:22)
[2022-07-01] MEDS: LOTRIMIN CREAM 30 GM TP SCH ×2 (08:22→20:41)
[2022-07-01] MEDS: Lasix 40 MG PO SCH (08:22)
[2022-07-01] MEDS: Klor Con PO SCH (08:22)
[2022-07-01] MEDS: Zithromax 500 MG/ 250 ML NaCl Premix 500 MG/250 ML IVPB IV SCH (08:23)
[2022-07-01] MEDS ORDERED: Tessalon Perles 100 MG PO PRN (09:09)
[2022-07-01] MEDS: ROCEPHIN 2 Gm-D5w 50ML BAG** 2 G/50 ML IVPB IV SCH (09:48)
[2022-07-01] MEDS ORDERED: solu-MEDROL ONE (18:41)
[2022-07-01] MEDS: ZOCOR 20MG PO SCH (20:41)
[2022-07-01] MEDS: NORCO 7.5/325 MG TAB PO PRN (20:45)
[2022-07-02] MEDS: DUONEB 0.5-3 MG/3 ml Neb IH SCH ×3 (01:05→12:59)
[2022-07-02] MEDS: solu-MEDROL 60 MG, Sterile H2O 10 ml 2 ML IV SCH ×2 (06:25)
[2022-07-02] MEDS: Advair Hfa 115/21 Common canister IH SCH (07:21)
[2022-07-02] MEDS: Klor Con PO SCH (09:43)
[2022-07-02] MEDS: Protonix 40MG Tablet PO SCH (09:43)
[2022-07-02] MEDS: ENOXAPARIN SODIUM SQ SCH (09:43)
[2022-07-02] MEDS: SYNTHROID 25 MCG PO SCH (09:43)
[2022-07-02] MEDS: ECOTRIN 81 MG PO SCH (09:43)
[2022-07-02] MEDS: Lopressor 50 MG PO SCH (09:43)
[2022-07-02] MEDS: Lasix 40 MG PO SCH (09:43)
[2022-07-02] MEDS: Zestril 10 MG PO SCH (09:43)
[2022-07-02] MEDS: SYNTHROID 150 MCG PO SCH (09:43)
[2022-07-02 12:01] VITALS: BP 147/69; PULSE 74; O2SAT 94
[2022-07-02] MEDS: LOTRIMIN CREAM 30 GM TP SCH (12:57)
[2022-07-02] MEDS: Zithromax 500 MG/ 250 ML NaCl Premix 500 MG/250 ML IVPB IV SCH (12:58)
[2022-07-02] MEDS: ROCEPHIN 2 Gm-D5w 50ML BAG** 2 G/50 ML IVPB IV SCH (12:58)
--- NOTE | 2022-07-02 13:26 | PCM.DS ---
Discharge Summary Date of Admission: 06/28/22 15:45 Admitting Physician: SANJANA BRASWELL Primary Care Provider: BAUTISTA ACEVES Allergies Allergies sulfamethoxazole [From Bactrim] Allergy (Verified 06/28/22 10:28) trimethoprim [From Bactrim] Allergy (Verified 06/28/22 10:28) Hospital Summary - Hospital Course Hospital Course: Chief Complaint Diagnosis Acute hypoxic respiratory failure, pneumonia, NSTEMI Allergies Allergy/AdvReac Type Severity Reaction Status Date / Time sulfamethoxazole Allergy Verified 06/28/22 10:28 [From Bactrim] trimethoprim [From Bactrim] Allergy Verified 06/28/22 10:28 Vital Signs (Last 24 hours) Temp Pulse Resp BP Pulse Ox 07/02/22 13:01 74 20 94 L 07/02/22 11:56 97.5 F 74 17 147/69 94 L 07/02/22 07:46 96.6 F 76 20 154/68 96 07/02/22 07:23 75 18 95 07/02/22 03:28 98.1 F 108 H 16 163/74 92 L 07/02/22 01:05 81 20 91 L 07/01/22 23:43 97.8 F 81 16 131/61 91 L 07/01/22 19:29 97.3 F 102 H 17 158/81 95 07/01/22 18:43 107 H 18 91 L 07/01/22 16:00 97.5 F 99 H 20 142/77 94 L 07/01/22 13:28 84 20 92 L Home Medications Medication Instructions Recorded Confirmed Last Taken Type Albuterol 2.5 mg/3 ml Neb 1 vial PO Q4-6HPRN PRN 06/28/22 06/28/22 06/27/22 History [Proventil 2.5 mg/3 ml Neb] Aspirin EC 81 mg [Ecotrin 81 1 tab PO DAILY 06/28/22 06/28/22 06/28/22 08:00 History mg] Atorvastatin Calcium [Lipitor] 1 tab PO HS 06/28/22 06/28/22 06/27/22 21:00 History Furosemide 40 mg [Lasix 40 1 tab PO DAILY 06/28/22 06/28/22 06/28/22 08:00 History MG] Hydrocodone/Acetaminophen 1 tab PO QID 06/28/22 06/28/22 06/28/22 History [Hydrocodone-Acetamin 7.5-325] Levothyroxine Sodium 1 tab PO DAILY 06/28/22 06/28/22 06/28/22 08:00 History Lisinopril 10 mg [Zestril 10 1 tab PO BID 06/28/22 06/28/22 06/28/22 08:00 History MG] Metoprolol Tartrate 50 mg 1 tab PO BID 06/28/22 06/28/22 06/28/22 08:00 History [Lopressor 50 MG] Omeprazole 1 tab PO DAILY 06/28/22 06/28/22 06/28/22 08:00 History Potassium Chloride 1 tab PO DAILY 06/28/22 06/28/22 06/28/22 08:00 History Acetaminophen 325 mg [Tylenol 650 mg PO Q4H PRN PRN tablet 07/02/22 Unknown Rx 325 mg] Cephalexin Mh 500 mg [Keflex 500 500 mg PO Q6H 7 Days #28 cap 07/02/22 Unknown Rx mg] Fluticasone/Salmeterol 115 2 puff IH BIDRT 30 Days #120 07/02/22 Unknown Rx [Advair Hfa 115 Common canister*] Current Medications Generic Name Dose Route Start Last Admin Trade Name Freq PRN Reason Stop Dose Admin Acetaminophen 650 mg 06/28/22 15:52 Acetaminophen 325 Mg Tablet PO 07/28/22 15:51 Q4H PRN PRN PAIN AND/OR FEVER Hydrocodone Bitart/Acetaminophen 1 tab 06/29/22 08:48 07/01/22 20:45 Hydrocodone /Apap 7.5/325 Mg 1 Each Tablet PO 07/04/22 08:59 1 tab QID PRN PRN Administration PAIN Albuterol Sulfate 2.5 mg 06/29/22 07:15 Albuterol Sulfate 2.5 Mg/3 Ml Neb IH 07/29/22 07:14 Q4HPRN PRN SHORTNESS OF BREATH Albuterol/Ipratropium 3 ml 06/28/22 15:52 07/02/22 12:59 Ipratropium/Albuterol Sulfate 3 Ml Ampul.Neb IH 07/28/22 15:51 3 ml Q6HRT KEVIN Administration Aspirin 81 mg 06/29/22 10:00 07/02/22 09:43 Aspirin 81 Mg Tablet.Ec PO 07/29/22 09:59 81 mg DAILY KEVIN Administration Benzonatate 100 mg 07/01/22 09:09 07/01/22 10:44 Benzonatate 100 Mg Capsule PO 07/31/22 09:08 100 mg QID PRN PRN Administration COUGH Clotrimazole 0 gm 06/28/22 19:00 07/02/22 12:57 Clotrimazole 30 Gm Cream TP 07/28/22 18:59 Not Given BID KEVIN Methylprednisolone Sodium 0 mg 06/30/22 18:00 07/02/22 06:25 Succinate 60 mg/ Sterile Water IV 07/30/22 17:59 60 mg 2 ml Q12H KEVIN Administration Enoxaparin Sodium 40 mg 06/28/22 17:00 07/02/22 09:43 Enoxaparin Sodium 40 Mg/0.4 Ml Syringe SQ 07/28/22 16:59 40 mg DAILY KEVIN Administration Furosemide 40 mg 06/29/22 10:00 07/02/22 09:43 Furosemide 40 Mg Tablet PO 07/29/22 09:59 40 mg DAILY KEVIN Administration Azithromycin 500 mg in 250 mls @ 250 mls/hr 06/29/22 10:00 07/02/22 12:58 Zithromax 500 Mg/ 250 Ml Nacl Premix IV 07/29/22 09:59 Not Given Q24H10 KEVIN Ceftriaxone Sodium/Dextrose 2 g in 50 mls @ 100 mls/hr 06/29/22 10:00 07/02/22 12:58 Rocephin 2 Gm-D5w 50ml Bag IV 07/04/22 09:59 Not Given Q24H10 KEVIN Insulin Human Lispro 0 unit 06/28/22 15:52 Insulin Lispro 1 Unit SQ 07/28/22 15:51 UD PRN HYPERGLYCEMIA Levothyroxine Sodium 150 mcg 06/29/22 10:00 07/02/22 09:43 Levothyroxine Sodium 150 Mcg Tablet PO 07/29/22 09:59 150 mcg DAILY KEVIN Administration Levothyroxine Sodium 25 mcg 06/29/22 10:00 07/02/22 09:43 Levothyroxine Sodium 25 Mcg Tablet PO 07/29/22 09:59 25 mcg DAILY KEVIN Administration Lisinopril 10 mg 06/28/22 22:00 07/02/22 09:43 Lisinopril 10 Mg Tablet PO 07/28/22 21:59 10 mg BID KEVIN Administration Metoprolol Tartrate 50 mg 06/28/22 22:00 07/02/22 09:43 Metoprolol Tartrate 50 Mg Tablet PO 07/28/22 21:59 50 mg BID KEVIN Administration Morphine Sulfate 2 mg 06/28/22 15:52 Morphine Sulfate 2 Mg/Ml Inj IV 07/03/22 15:51 Q4H PRN PRN PAIN Ondansetron HCl 4 mg 06/28/22 15:52 Ondansetron Hcl 4 Mg/2 Ml Vial IV 07/28/22 15:51 Q6H PRN PRN NAUSEA/VOMITING Pantoprazole Sodium 40 mg 06/29/22 10:00 07/02/22 09:43 Protonix (Pantoprazole) 40 Mg Tablet PO 07/29/22 09:59 40 mg DAILY KEVIN Administration Potassium Chloride 10 meq 06/29/22 10:00 07/02/22 09:43 Potassium Chloride Tab 10 Meq Tab PO 07/29/22 09:59 10 meq DAILY KEVIN Administration Fluticasone/Salmeterol 2 puff 07/01/22 10:00 07/02/22 07:21 Fluticasone/Salmeterol 115/21 - 120 Puff Common Canister 07/31/22 09:59 2 puff BIDRT KEVIN Administration Simvastatin 40 mg 06/28/22 22:00 07/01/22 20:41 Simvastatin 20 Mg Tablet PO 07/28/22 21:59 40 mg HS KEVIN Administration Discontinued Medications Generic Name Dose Route Start Last Admin Trade Name Freq PRN Reason Stop Dose Admin Hydrocodone Bitart/Acetaminophen 1 tab 06/28/22 22:00 06/28/22 22:59 Hydrocodone /Apap 7.5/325 Mg 1 Each Tablet PO 07/03/22 21:59 1 tab QID KEVIN Administration Albuterol/Ipratropium 3 ml 06/28/22 10:43 06/28/22 10:55 Ipratropium/Albuterol Sulfate 3 Ml Ampul.Neb IH 06/28/22 10:44 3 ml STAT ONE Administration Albuterol/Ipratropium Confirm 06/28/22 10:51 Ipratropium/Albuterol Sulfate 3 Ml Ampul.Neb Administered 06/28/22 10:52 Dose 3 ml IH .STK-MED ONE Albuterol/Ipratropium Confirm 06/29/22 05:45 Ipratropium/Albuterol Sulfate 3 Ml Ampul.Neb Administered 06/29/22 05:46 Dose 3 ml IH .STK-MED ONE Aspirin 324 mg 06/28/22 12:37 06/28/22 12:57 Aspirin 81 Mg Tab.Chew PO 06/28/22 12:38 324 mg STAT ONE Administration Aspirin Confirm 06/28/22 12:55 Aspirin 81 Mg Tab.Chew Administered 06/28/22 12:56 Dose 324 mg .ROUTE .STK-MED ONE Clotrimazole 30 gm 06/28/22 18:53 06/28/22 19:01 Clotrimazole 30 Gm Cream TP 06/28/22 18:54 Not Given STAT ONE Methylprednisolone Sodium 0 mg 06/28/22 10:43 06/28/22 11:12 Succinate 125 mg/ Sterile IV 06/28/22 10:44 125 mg Water 2 ml STAT ONE Administration Methylprednisolone Sodium 0 mg 06/28/22 18:00 06/30/22 06:38 Succinate 60 mg/ Sterile Water IV 07/28/22 17:59 60 mg 2 ml Q6HT KEVIN Administration Azithromycin 500 mg in 250 mls @ 250 mls/hr 06/28/22 12:15 06/28/22 13:59 Zithromax 500 Mg/ 250 Ml Nacl Premix IV 06/28/22 13:14 Infused STAT STA Infusion Ceftriaxone Sodium/Dextrose 2 g in 50 mls @ 100 mls/hr 06/28/22 12:15 06/28/22 12:50 Rocephin 2 Gm-D5w 50ml Bag IV 06/28/22 12:44 Infused STAT STA Infusion Ceftriaxone Sodium/Dextrose Confirm 06/28/22 12:18 Rocephin 2 Gm-D5w 50ml Bag Administered 06/28/22 12:19 Dose 2 g in 50 mls @ ud IV .STK-MED ONE Azithromycin Confirm 06/28/22 12:56 Zithromax 500 Mg/ 250 Ml Nacl Premix Administered 06/28/22 12:57 Dose 500 mg in 250 mls @ ud IV .STK-MED ONE Methylprednisolone Sodium Succinate Confirm 06/28/22 11:09 Methylprednis Sod Succ 125 Mg/2 Ml Vial Administered 06/28/22 11:10 Dose 125 mg .ROUTE .STK-MED ONE Methylprednisolone Sodium Succinate Confirm 06/29/22 16:57 Methylprednis Sod Succ 125 Mg/2 Ml Vial Administered 06/29/22 16:58 Dose 125 mg .ROUTE .STK-MED ONE Methylprednisolone Sodium Succinate Confirm 06/30/22 00:05 Methylprednis Sod Succ 125 Mg/2 Ml Vial Administered 06/30/22 00:06 Dose 125 mg .ROUTE .STK-MED ONE Methylprednisolone Sodium Succinate Confirm 06/30/22 06:20 Methylprednis Sod Succ 125 Mg/2 Ml Vial Administered 06/30/22 06:21 Dose 125 mg .ROUTE .STK-MED ONE Methylprednisolone Sodium Succinate Confirm 07/01/22 18:41 Methylprednis Sod Succ 125 Mg/2 Ml Vial Administered 07/01/22 18:42 Dose 125 mg .ROUTE .STK-MED ONE Oseltamivir Phosphate 75 mg 06/28/22 12:23 06/28/22 12:52 Oseltamivir 75 Mg Cap PO 06/28/22 12:24 Not Given STAT ONE Oseltamivir Phosphate 75 mg 06/28/22 22:00 Oseltamivir 75 Mg Cap PO 07/03/22 21:59 BID KEVIN Pantoprazole Sodium 40 mg 06/28/22 17:00 06/28/22 18:41 Pantoprazole 40 Mg Vial IV 07/28/22 16:59 40 mg Q24H10 KEVIN Administration Sterile Water Confirm 06/28/22 11:09 Water For Injection,Sterile 10 Ml Vial Administered 06/28/22 11:10 Dose 10 ml IJ .STK-MED ONE Intake & Output (Last 24 hours) 06/30/22 07/01/22 07/02/22 07/03/22 11:59 11:59 11:59 11:59 Intake Total 1900 1870 1580 Output Total 1 Balance 1898 1870 1580 Weight 111.7 kg 112 kg 112.5 kg Laboratory Results (Last 24 hours) 07/02/22 08:13 Procalcitonin 0.069 Orders (Last 24 hours) Category Date Time Status House Regular Diet Diet 07/02/22 Lunch Active House Regular Diet Diet 07/02/22 Lunch Completed PROCALCITONIN Stat Lab 07/02/22 08:13 Completed Methylprednis Sod Succ 125 mg* [solu-MEDROL] Med 07/01/22 18:41 Discontinued 125 mg .ROUTE .STK-MED ONE Patient Care Notes (Last 24 hours) 07/02/22 10:13 Case Management Note by Shavonne Allen S/W SOFIE- PRINT MANAGER WITH [facility]- SHE WILL CALL AND S/W PATIENT. Initialized on 07/02/22 10:13 - END OF NOTE 07/02/22 09:39 Case Management Note by Shavonne Allen S/W PATIENT ABOUT PLANS AT DC- SHE CONTINUES TO PLAN TO DC HOME TO HER PLF AT TIME OF DC. PATIENT NOT MTG ANY SKILL REQUIREMENTS FOR HHC. PATIENT STATES SHE CAN CARE FOR HERSELF AT HOME. REFERRAL WAS SENT TO [facility] TO SEE IF PATIENT QUALIFIES FOR ANY AID/HOMEMAKER SERVICES THRU HER MEDICAID. PATIENT REPORTS HER GRANDDAUGHTER IS GOING TO HELP HER START THE EVICTION PROCESS FOR PATIENT'S DAUGHTER. [facility] AND [facility] PHONE NUMBER PLACED ON PAPERWORK FOR PATIENT TO FOLLOW UP NEEDED PATIENT NEEDING OXYGEN AT DC- THIS WAS ORDERED THRU [facility]. DELIVERY INSTRUCTIONS ADDED TO DC INSTRUCTIONS. NURSE AWARE TO SEND PATIENT HOME WITH PORTABLE. PULSE OX ALSO GIVEN TO PRIMARY RN TO GIVE TO PATIENT AT TIME OF DC. PATIENT REPORTS HER ROLLATOR IS BROKEN. SHE REQUIRES THIS TO SAFELY AMBULATE AND COMPLETE ADLS- NEW ROLLATOR ORDERED THRU [facility] PATIENT ALSO REPORTED TO THIS NURSE SHE IS UP THRU THE NIGHT SEVERAL TIMES D/T UNABLE TO LAY FLAT IN BED TO SLEEP FOR VERY LONG D/T SOB. SHE REPORTS SHE HAS HAD THIS TROUBLE FOR YEARS AND IT IS PROGRESSIVELY GOTTEN WORSE. PHYSICIAN ORDERED HOSPITAL BED FOR PATIENT AT HOME. ORDER SUBMITTED TO [facility]IA [place] Initialized on 07/02/22 09:39 - END OF NOTE - Vitals & Intake/Output Vital Signs: Vital Signs Temperature 97.5 F 07/02/22 11:56 Pulse Rate 74 07/02/22 13:01 Respiratory Rate 20 07/02/22 13:01 Blood Pressure 147/69 07/02/22 11:56 O2 Sat by Pulse Oximetry 94 L 07/02/22 13:01 Intake & Output: Intake & Output 01/21/23 01/22/23 01/23/23 01/24/23 11:59 11:59 11:59 11:59 Intake Total 1900 1870 1580 Output Total 1 Balance 189 1870 1580 Weight 111.7 kg 112 kg 112.5 kg - Lab Result Diagrams: 07/01/22 05:35 07/01/22 05:35 Lab Results-Last 24 Hrs: Lab Results-Last 24 Hours 07/02/22 Range/Units 08:13 Procalcitonin 0.069 (0.030-0.080) ng/mL Micro Results-Entire Visit: Microbiology 06/28/22 11:36 Blood Culture - Preliminary Blood NO GROWTH TO DATE 06/28/22 11:10 Blood Culture - Preliminary Blood NO GROWTH TO DATE - Procedures and Test Procedures and Tests throughout Hospitalization: Therapy Orders & Screens 06/28/22 15:52 Oxygen Nasal Cannula 2 lpm Comment: 06/28/22 17:10 RT Screen per Nursing Assess ONCE Comment: Protocol Order Physician Instructions: Greater than 3 points order RT Admission Screen Reason For Exam: Triggered on Admission Diagnosis: Acute hypoxic respiratory failure, pneumonia, NSTEMI, influenza Diagnosis: Acute hypoxic respiratory failure, pneumonia, NSTEMI, influenza Pneumonia: Yes Home O2: No Asthma: Yes CHF: Yes Home CPAP/BIPAP: No Home Nebs/MDI: Yes Total Points: 15 Smoking Cessation Education ONCE Comment: Diagnosis: Acute hypoxic respiratory failure, pneumonia, NSTEMI, influenza Smoking Status: Current every day smoker How long have you smoked: >25 years Approximately how many cigarettes per day: 20 Do you dip or chew tobacco: No Discharge Exam General Appearance: no apparent distress, alert Neurologic Exam: alert, oriented x 3, cooperative, normal mood/affect, nml cerebellar function, sensation nml, No motor deficits Eye Exam: PERRL, EOMI, eyes nml inspection Ears, Nose, Throat Exam: normal ENT inspection, pharynx normal, moist mucous membranes Neck Exam: normal inspection, non-tender, supple, full range of motion Respiratory Exam: diminished breath sounds, No respiratory distress Cardiovascular Exam: regular rate/rhythm, normal heart sounds Gastrointestinal/Abdomen Exam: soft, No tenderness, No mass Pelvic Exam: deferred Rectal Exam: deferred Back Exam: normal inspection, normal range of motion, No CVA tenderness, No vertebral tenderness Extremity Exam: normal inspection, normal range of motion Skin Exam: normal color, warm, dry Final Diagnosis/Problem List - Final Discharge Diagnosis/Problem (1) Respiratory failure Current Visit: Yes Status: Resolved Code(s): J96.90 - RESPIRATORY FAILURE, UNSP, UNSP W HYPOXIA OR HYPERCAPNIA (2) Pneumonia Current Visit: Yes Status: Resolved Code(s): J18.9 - PNEUMONIA, UNSPECIFIED ORGANISM (3) Type 2 MA (myocardial infarction) Current Visit: Yes Status: Resolved Code(s): I21.A1 - MYOCARDIAL INFARCTION TYPE 2 (4) Non-ST elevation MA (NSTEMI) Current Visit: Yes Status: Resolved Code(s): I21.4 - NON-ST ELEVATION (NSTEMI) MYOCARDIAL INFARCTION (5) COPD with exacerbation Current Visit: Yes Status: Acute Code(s): J44.1 - CHRONIC OBSTRUCTIVE PULMONARY DISEASE W (ACUTE) EXACERBATION - Discharge Discharge Date: 07/02/22 Disposition: Home, Self-Care Condition: Good Prescriptions: New Acetaminophen 325 mg [Tylenol 325 mg] 650 mg PO Q4H PRN PRN tablet PRN Reason: Pain And/Or Fever Fluticasone/Salmeterol 115/21 [Advair Hfa 115/21 Common canister*] 2 puff IH BIDRT 30 Days #120 Cephalexin Mh 500 mg [Keflex 500 mg] 500 mg PO Q6H 7 Days #28 cap Continue Furosemide 40 mg [Lasix 40 MG] 1 tab PO DAILY Metoprolol Tartrate 50 mg [Lopressor 50 MG] 1 tab PO BID Aspirin EC 81 mg [Ecotrin 81 mg] 1 tab PO DAILY Albuterol 2.5 mg/3 ml Neb [Proventil 2.5 mg/3 ml Neb] 1 vial PO Q4- 6HPRN PRN PRN Reason: Shortness Of Breath Levothyroxine Sodium 1 tab PO DAILY Atorvastatin Calcium [Lipitor] 1 tab PO HS Potassium Chloride 1 tab PO DAILY Hydrocodone/Acetaminophen [Hydrocodone-Acetamin 7.5-325] 1 tab PO QID Omeprazole 1 tab PO DAILY Lisinopril 10 mg [Zestril 10 MG] 1 tab PO BID Instructions: Oxygen Therapy, Adult (DC) Additional Instructions: YOU NEED TO WEAR 2L/NC AT ALL TIMES AT HOME CALL DANIS AT [phone] WHEN YOU GET READY TO LEAVE [facility] SO THEY CAN MEET YOU AT HOME TO DELIVER YOUR HOME [facility] AND WALKER ALSO ORDERED THRU [facility]- THEY WILL DELIVER IT TO YOUR HOME THRIVE PHONE NUMBER [phone] (AGENCY TO SEE IF YOU CAN GET AID/HOMEMAKER HELP THRU YOUR MEDICAID) ADULT PROTECTIVE SERVICES [phone] Follow up with: BAUTISTA ACEVES [Primary Care Provider] - 7 Days Forms: Discharge Instructions
== END 2022-07-02 16:45 | disposition home or self-care (01) ==
LOC: ED 09:52 → MED SURG 15:45
PROVIDERS: ADMIT General Practice; ATTEND General Practice
DX: J96.90 Respiratory failure, unspecified, unspecified whether with hypoxia or hypercapnia (principal); J18.9 Pneumonia, unspecified organism; I21.A1 Myocardial infarction type 2; I21.4 Non-ST elevation (NSTEMI) myocardial infarction; J44.1 Chronic obstructive pulmonary disease with (acute) exacerbation; I10 Essential (primary) hypertension; R07.9 Chest pain, unspecified; E78.5 Hyperlipidemia, unspecified; E03.9 Hypothyroidism, unspecified; I25.10 Atherosclerotic heart disease of native coronary artery without angina pectoris; R60.0 Localized edema; I25.2 Old myocardial infarction; Z72.0 Tobacco use; Z20.828 Contact with and (suspected) exposure to other viral communicable diseases; Z79.899 Other long term (current) drug therapy
CPT/HCPCS: 0241U; 36000; 36415; 71045; 71260; 80053; 83605; 83735; 83880; 84145; 84436; 84443; 84479; 84484; 85025; 85027; 85379; 87040; 93005; 93041; 94640; 94760; 94762; 96365; 96367; 96374; 99285; 99291; 93268; J0456; J0696; J1650; J2930; A9270-GY; G0378

== ENCOUNTER 2022-07-14 11:55 | Emergency (ER) | payer OTHER ==
[2022-07-14] MEDS ORDERED: Lasix 40 MG/4 ML IV ONE (12:20)
[2022-07-14] MEDS ORDERED: Lasix 40 MG/4 ML ONE (12:32)
[2022-07-14 12:58] LABS: Absolute Neutrophil Ct (ANC) 6.47 x10^3/uL (1.4-6.9); BASOPHIL % 0.7 % (0.0-0.4); Basophil (Absolute #) 0.07 x10^3/uL (0-0.4); Eosinophil % 1.4 % (0.00-5.0); Eosinophil (Absolute #) 0.13 x10^3/uL (0-0.5); Hematocrit 43.7 % (35-47); IMMATURE GRAN # 0.07 x10^3u/L (0.00-0.03); IMMATURE GRAN % 0.7 % (0.00-0.4); Lymphocyte (Absolute #) 2.14 x10^3/uL (1.0-4.6); Lymphocytes % 22.5 % (24.0-44.0); Mean Cell Volume 99.5 fL (78-100); Mean Corpuscular Hemoglobin 29.6 pg (26-32); Mean Corpuscular Hgb Concent. 29.7 g/dL (32-36); Mean Platelet Volume 10.2 fL (7.5-11.0); Monocyte (Absolute #) 0.62 x10^3/uL (0.0-1.3); Monocytes % 6.5 % (0.0-12.0); Neutrophil % 68.2 % (36.0-66.0); Platelet Count 293 x10^3/uL (150-450); Red Blood Count 4.39 x10^6/uL (4.1-5.4); Red Cell Distribution Width 14.6 % (11.5-14.0); White Blood Count 9.5 x10^3/uL (4.0-10.5)
[2022-07-14 13:11] LABS: ALBUMIN 3.9 g/dL (3.5-5.0); ALKALINE PHOSPHATASE 102 U/L (38-126); ANION GAP 8.8 MEQ/L (5-15); BLOOD UREA NITROGEN 14 mg/dL (7-17); CHLORIDE 99 mmol/L (98-107); Calcium 8.7 mg/dL (8.4-10.2); Carbon Dioxide 36 mmol/L (22-30); Creatinine 1 0.55 mg/dL (0.52-1.04); EST GLOMERULAR FILTRATION RATE > 60.0 ML/MIN; Glucose 112 mg/dL (74-106); NT PRO BNP 185 pg/mL (0-900); Potassium 4.2 mmol/L (3.5-5.1); SGOT/AST 26 U/L (14-36); SGPT/ALT 29 U/L (0-35); SODIUM 139 mmol/L (137-145); Total Protein 7.2 g/dL (6.3-8.2)
[2022-07-14 13:39] LABS: Appearance Clear (Clear); Bacteria None Seen /HPF (None Seen); Bilirubin Negative (Negative); Blood Negative (Negative); Epithelial Cells None Seen /HPF (None Seen); Glucose, Urine Negative (Negative); Hyaline Casts NONE SEEN /LPF (0-2); Ketones Negative (Negative); Leukocyte Esterase Negative (Negative); Nitrite Negative (Negative); Ph 7.5 (4.6-8.0); Protein,Urine Dip Negative (Negative); RBC 0-2 /HPF (0-5); Urobilinogen 0.2 mg/dL (0.2); WBC 0-2 /HPF (0-5)
[2022-07-14 13:40] LABS: ADD URINE CULTURE? NO (NO)
--- NOTE | 2022-07-14 15:59 | ERPHSYRPT ---
- History of Present Illness Time Seen by Provider: 07/14/22 12:20 Source: patient Exam Limitations: no limitations Patient Subjective Stated Complaint: PT states "I just got out the June for pneumonia and now my legs are really swollen and they hurt!" Triage Nursing Assessment: PT presented alert and orietned X 3, skin pwd. PT amublates slow shuffling gait, able to speak in clear full sentences pt legs bilat are swollen and red. Physician History: Patient is a 61-year-old female who was hospitalized with pneumonia on 07/04/2022. During that treatment for pneumonia and she did receive prolonged steroid therapy. Since discharge she is noted swelling and some redness of both lower legs. On arrival her O2 sat is 97% she does have COPD and is to take oxygen at night. Severity: moderate Allergies/Adverse Reactions: sulfamethoxazole [From Bactrim] Allergy (Verified 06/28/22 10:28) trimethoprim [From Bactrim] Allergy (Verified 06/28/22 10:28) Home Medications: Albuterol 2.5 mg/3 ml Neb [Proventil 2.5 mg/3 ml Neb] 1 vial PO Q4-6HPRN PRN 06/28/22 [History] Aspirin EC 81 mg [Ecotrin 81 mg] 1 tab PO DAILY 06/28/22 [History] Atorvastatin Calcium [Lipitor] 1 tab PO HS 06/28/22 [History] Furosemide 40 mg [Lasix 40 MG] 1 tab PO DAILY 06/28/22 [History] Hydrocodone/Acetaminophen [Hydrocodone-Acetamin 7.5-325] 1 tab PO QID 06/28/22 [History] Levothyroxine Sodium 1 tab PO DAILY 06/28/22 [History] Lisinopril 10 mg [Zestril 10 MG] 1 tab PO BID 06/28/22 [History] Metoprolol Tartrate 50 mg [Lopressor 50 MG] 1 tab PO BID 06/28/22 [History] Omeprazole 1 tab PO DAILY 06/28/22 [History] Potassium Chloride 1 tab PO DAILY 06/28/22 [History] Hx Tetanus, Diphtheria Vaccination/Date Given: Yes Hx Influenza Vaccination/Date Given: No Hx Pneumococcal Vaccination/Date Given: Yes Immunizations Up to Date: Yes Travel Risk - International Travel Have you traveled outside of the country in past 3 weeks: No - Coronavirus Screening Are you exhibiting any of the following symptoms?: No Close contact with a COVID-19 positive Pt in past 14-21 Days: No - Vaccine Status Have you recieved a Covid-19 vaccination: No - Review of Systems Constitutional: No Fever, No Chills Eyes: No Symptoms Ears, Nose, & Throat: No Symptoms Respiratory: No Cough, No Dyspnea Cardiac: Edema, No Chest Pain, No Syncope Abdominal/Gastrointestinal: No Abdominal Pain, No Nausea, No Vomiting, No Diarrhea Genitourinary Symptoms: No Dysuria Musculoskeletal: No Back Pain, No Neck Pain Skin: No Rash Neurological: No Dizziness, No Focal Weakness, No Sensory Changes Psychological: No Symptoms Endocrine: No Symptoms All Other Systems: Reviewed and Negative - Past Medical History Pertinent Past Medical History: Yes Neurological History: No Pertinent History Cardiac History: Coronary Artery Disease, High Cholesterol, Hypertension, Myocardial Infarction ([place]) Respiratory History: Asthma, COPD, Other Endocrine Medical History: Hypothyroidism Musculoskeletal History: No Pertinent History GI Medical History: GERD History: No Pertinent History Psycho-Social History: No Pertinent History Female Reproductive Disorders: No Pertinent History Other Medical History: smoker - Past Surgical History Past Surgical History: Yes Neuro Surgical History: No Pertinent History Cardiac: Cardiac Catheterization, Cardiac Stent Respiratory: No Pertinent History Gastrointestinal: No Pertinent History Musculoskeletal: No Pertinent History Female Surgical History: Tubal Ligation Other Surgical History: NECK SURGERY - Social History Smoking Status: Current every day smoker How long have you smoked: >25 years Exposure to second hand smoke: No Drug Use: none Patient Lives Alone: No - Nursing Vital Signs Nursing Vital Signs: Initial Vital Signs Temperature 97.2 F 07/14/22 12:04 Pulse Rate 81 07/14/22 12:04 Respiratory Rate 22 07/14/22 12:04 Blood Pressure 127/58 07/14/22 12:04 O2 Sat by Pulse Oximetry 98 07/14/22 12:04 Pain Scale Pain Intensity 2 - Physical Exam General Appearance: alert Eye Exam: PERRL/EOMI, eyes nml inspection Ears, Nose, Throat Exam: normal ENT inspection, TMs normal, pharynx normal, moist mucous membranes Neck Exam: normal inspection, non-tender, supple, full range of motion Respiratory Exam: normal breath sounds, lungs clear, No respiratory distress Cardiovascular Exam: regular rate/rhythm, normal heart sounds, normal peripheral pulses Gastrointestinal/Abdomen Exam: soft, normal bowel sounds, No tenderness, No mass Back Exam: normal range of motion, other, No CVA tenderness, No vertebral tende rness Extremity Exam: normal range of motion, pelvis stable, pedal edema (4+ edema), swelling Neurologic Exam: alert, oriented x 3, cooperative, normal mood/affect, nml cerebellar function, nml station & gait, sensation nml, No motor deficits Skin Exam: normal color, warm, dry, No rash Lymphatic Exam: No adenopathy SpO2: 97 - Course Nursing assessment & vital signs reviewed: Yes EKG Interpreted by Me: RATE (73), Sinus Rhythm, NORMAL AXIS, NORMAL INTERVALS, NORMAL QRS, Non-specific ST Changes - Radiology Exams Chest X-ray Interpretation: Interpreted by me, Negative Ordered Tests: Active Orders 24 hr Category Date Time Status EKG-ER Only STAT Care 07/14/22 12:20 Active IV Insertion STAT Care 07/14/22 12:20 Active CHEST 1 VIEW (PORTABLE) Stat Exams 07/14/22 12:21 Taken CBC W DIFF Stat Lab 07/14/22 12:45 Completed CMP Stat Lab 07/14/22 12:45 Completed D-DIMER QUANTITATIVE Stat Lab 07/14/22 12:45 Completed Lactic Acid Stat Lab 07/14/22 12:20 Completed NT PRO BNP Stat Lab 07/14/22 12:45 Completed TROPONIN Q4H Lab 07/14/22 12:45 Completed TROPONIN Q4H Lab 07/14/22 14:55 Completed TROPONIN Q4H Lab 07/14/22 20:30 Ordered TSH [TSH, 3RD Generation] Stat Lab 07/14/22 12:45 Completed UA W/RFX UR CULTURE Stat Lab 07/14/22 13:01 Completed Medication Summary Discontinued Medications Generic Name Dose Route Start Last Admin Trade Name Freq PRN Reason Stop Dose Admin Furosemide 40 mg 07/14/22 12:20 07/14/22 12:33 Furosemide 40 Mg/4 Ml Vial IV 07/14/22 12:21 40 mg STAT ONE Administration Furosemide Confirm 07/14/22 12:32 Furosemide 40 Mg/4 Ml Vial Administered 07/14/22 12:33 Dose 40 mg .ROUTE .[employer] ONE Lab/Rad Data: Laboratory Result Diagrams 07/14/22 12:45 07/14/22 12:45 Laboratory Results 07/14/22 07/14/22 07/14/22 Range/Units 14:55 13:01 12:45 WBC (4.0-10.5) x10^3/uL RBC (4.1-5.4) x10^6/uL Hgb (12.0-16.0) g/dL Hct (35-47) % MCV (78-100) fL MCH (26-32) pg MCHC (32-36) g/dL RDW (11.5-14.0) % Plt Count (150-450) x10^3/uL MPV (7.5-11.0) fL Gran % (36.0-66.0) % Immature Gran % (Auto) (0.00-0.4) % Nucleat RBC Rel Count (0.00-0.1) % Eos # (Auto) (0-0.5) x10^3/uL Immature Gran # (Auto) (0.00-0.03) x10^3u/L Absolute Lymphs (auto) (1.0-4.6) x10^3/uL Absolute Monos (auto) (0.0-1.3) x10^3/uL Absolute Nucleated RBC (0.00-0.01) x10^3u/L Lymphocytes % (24.0-44.0) % Monocytes % (0.0-12.0) % Eosinophils % (0.00-5.0) % Basophils % (0.0-0.4) % Absolute Granulocytes (1.4-6.9) x10^3/uL Basophils # (0-0.4) x10^3/uL D-Dimer (0.0-0.50) mg/L Sodium (137-145) mmol/L Potassium (3.5-5.1) mmol/L Chloride (98-107) mmol/L Carbon Dioxide (22-30) mmol/L Anion Gap (5-15) MEQ/L BUN (7-17) mg/dL Creatinine (0.52-1.04) mg/dL Estimated GFR ML/MIN Glucose (74-106) mg/dL Lactic Acid (0.4-2.0) Calcium (8.4-10.2) mg/dL Total Bilirubin (0.2-1.3) mg/dL AST (14-36) U/L ALT (0-35) U/L Alkaline Phosphatase (38-126) U/L Troponin I < 0.012 (0.000-0.034) ng/mL NT-Pro-B Natriuret Pep (0-900) pg/mL Serum Total Protein (6.3-8.2) g/dL Albumin (3.5-5.0) g/dL TSH 3rd Generation 1.600 (0.47-4.68) mIU/L Urine Color Yellow (Yellow) Urine Appearance Clear (Clear) Urine pH 7.5 (4.6-8.0) Ur Specific [place] 1.010 (1.005-1.030) Urine Protein Negative (Negative) Urine Glucose (UA) Negative (Negative) mg/dL Urine Ketones Negative (Negative) Urine Blood Negative (Negative) Urine Nitrite Negative (Negative) Urine Bilirubin Negative (Negative) Urine Urobilinogen 0.2 (0.2) mg/dL Ur Leukocyte Esterase Negative (Negative) U Hyaline Cast (Auto) NONE SEEN (0-2) /LPF Urine Microscopic RBC 0-2 (0-5) /HPF Urine Microscopic WBC 0-2 (0-5) /HPF Ur Epithelial Cells None Seen (None Seen) /HPF Urine Bacteria None Seen (None Seen) /HPF Urine Culture Reflexed NO (NO) 07/14/22 07/14/22 07/14/22 Range/Units 12:45 12:45 12:45 WBC (4.0-10.5) x10^3/uL RBC (4.1-5.4) x10^6/uL Hgb (12.0-16.0) g/dL Hct (35-47) % MCV (78-100) fL MCH (26-32) pg MCHC (32-36) g/dL RDW (11.5-14.0) % Plt Count (150-450) x10^3/uL MPV (7.5-11.0) fL Gran % (36.0-66.0) % Immature Gran % (Auto) (0.00-0.4) % Nucleat RBC Rel Count (0.00-0.1) % Eos # (Auto) (0-0.5) x10^3/uL Immature Gran # (Auto) (0.00-0.03) x10^3u/L Absolute Lymphs (auto) (1.0-4.6) x10^3/uL Absolute Monos (auto) (0.0-1.3) x10^3/uL Absolute Nucleated RBC (0.00-0.01) x10^3u/L Lymphocytes % (24.0-44.0) % Monocytes % (0.0-12.0) % Eosinophils % (0.00-5.0) % Basophils % (0.0-0.4) % Absolute Granulocytes (1.4-6.9) x10^3/uL Basophils # (0-0.4) x10^3/uL D-Dimer 0.65 H* (0.0-0.50) mg/L Sodium 139 (137-145) mmol/L Potassium 4.2 (3.5-5.1) mmol/L Chloride 99 (98-107) mmol/L Carbon Dioxide 36 H (22-30) mmol/L Anion Gap 8.8 (5-15) MEQ/L BUN 14 (7-17) mg/dL Creatinine 0.55 (0.52-1.04) mg/dL Estimated GFR > 60.0 ML/MIN Glucose 112 H (74-106) mg/dL Lactic Acid (0.4-2.0) Calcium 8.7 (8.4-10.2) mg/dL Total Bilirubin 0.40 (0.2-1.3) mg/dL AST 26 (14-36) U/L ALT 29 (0-35) U/L Alkaline Phosphatase 102 (38-126) U/L Troponin I < 0.012 (0.000-0.034) ng/mL NT-Pro-B Natriuret Pep 185 (0-900) pg/mL Serum Total Protein 7.2 (6.3-8.2) g/dL Albumin 3.9 (3.5-5.0) g/dL TSH 3rd Generation (0.47-4.68) mIU/L Urine Color (Yellow) Urine Appearance (Clear) Urine pH (4.6-8.0) Ur Specific [place] (1.005-1.030) Urine Protein (Negative) Urine Glucose (UA) (Negative) mg/dL Urine Ketones (Negative) Urine Blood (Negative) Urine Nitrite (Negative) Urine Bilirubin (Negative) Urine Urobilinogen (0.2) mg/dL Ur Leukocyte Esterase (Negative) U Hyaline Cast (Auto) (0-2) /LPF Urine Microscopic RBC (0-5) /HPF Urine Microscopic WBC (0-5) /HPF Ur Epithelial Cells (None Seen) /HPF Urine Bacteria (None Seen) /HPF Urine Culture Reflexed (NO) 07/14/22 07/14/22 Range/Units 12:45 12:20 WBC 9.5 (4.0-10.5) x10^3/uL RBC 4.39 (4.1-5.4) x10^6/uL Hgb 13.0 (12.0-16.0) g/dL Hct 43.7 (35-47) % MCV 99.5 (78-100) fL MCH 29.6 (26-32) pg MCHC 29.7 L (32-36) g/dL RDW 14.6 H (11.5-14.0) % Plt Count 293 (150-450) x10^3/uL MPV 10.2 (7.5-11.0) fL Gran % 68.2 H (36.0-66.0) % Immature Gran % (Auto) 0.7 H (0.00-0.4) % Nucleat RBC Rel Count 0.0 (0.00-0.1) % Eos # (Auto) 0.13 (0-0.5) x10^3/uL Immature Gran # (Auto) 0.07 H (0.00-0.03) x10^3u/L Absolute Lymphs (auto) 2.14 (1.0-4.6) x10^3/uL Absolute Monos (auto) 0.62 (0.0-1.3) x10^3/uL Absolute Nucleated RBC 0.00 (0.00-0.01) x10^3u/L Lymphocytes % 22.5 L (24.0-44.0) % Monocytes % 6.5 (0.0-12.0) % Eosinophils % 1.4 (0.00-5.0) % Basophils % 0.7 (0.0-0.4) % Absolute Granulocytes 6.47 (1.4-6.9) x10^3/uL Basophils # 0.07 (0-0.4) x10^3/uL D-Dimer (0.0-0.50) mg/L Sodium (137-145) mmol/L Potassium (3.5-5.1) mmol/L Chloride (98-107) mmol/L Carbon Dioxide (22-30) mmol/L Anion Gap (5-15) MEQ/L BUN (7-17) mg/dL Creatinine (0.52-1.04) mg/dL Estimated GFR ML/MIN Glucose (74-106) mg/dL Lactic Acid 1.6 (0.4-2.0) Calcium (8.4-10.2) mg/dL Total Bilirubin (0.2-1.3) mg/dL AST (14-36) U/L ALT (0-35) U/L Alkaline Phosphatase (38-126) U/L Troponin I (0.000-0.034) ng/mL NT-Pro-B Natriuret Pep (0-900) pg/mL Serum Total Protein (6.3-8.2) g/dL Albumin (3.5-5.0) g/dL TSH 3rd Generation (0.47-4.68) mIU/L Urine Color (Yellow) Urine Appearance (Clear) Urine pH (4.6-8.0) Ur Specific [place] (1.005-1.030) Urine Protein (Negative) Urine Glucose (UA) (Negative) mg/dL Urine Ketones (Negative) Urine Blood (Negative) Urine Nitrite (Negative) Urine Bilirubin (Negative) Urine Urobilinogen (0.2) mg/dL Ur Leukocyte Esterase (Negative) U Hyaline Cast (Auto) (0-2) /LPF Urine Microscopic RBC (0-5) /HPF Urine Microscopic WBC (0-5) /HPF Ur Epithelial Cells (None Seen) /HPF Urine Bacteria (None Seen) /HPF Urine Culture Reflexed (NO) - Progress Progress: unchanged - Departure Departure Disposition: Home Clinical Impression: Peripheral edema Condition: Stable Critical Care Time: No Referrals: BAUTISTA ACEVES [Primary Care Provider] - Follow up/PCP as directed Instructions: Dependent Edema (DC) Prescriptions: Spironolactone 25 mg [Aldactone 25 MG] 50 mg PO DAILY 10 Days #20 tablet
[2022-07-14 16:02] VITALS: BP 118/64; PULSE 84; O2SAT 98
[2022-07-14] MEDS ORDERED: Aldactone 25 MG PO ONE (16:13)
--- NOTE | 2022-07-14 20:08 | XRAY ---
Indication: Leg edema. Comparison: June 28, 2022 Portable chest demonstrates improving left mid to lower lung airspace disease with mild residual. Remaining heart and lungs are unremarkable.
== END 2022-07-14 16:44 | disposition home or self-care (01) ==
LOC: ED 11:55
DX: R60.0 Localized edema (principal); M79.604 Pain in right leg; M79.605 Pain in left leg; E78.5 Hyperlipidemia, unspecified; I10 Essential (primary) hypertension; Z79.891 Long term (current) use of opiate analgesic; Z79.899 Other long term (current) drug therapy; Z28.310 Unvaccinated for COVID-19; Z72.0 Tobacco use
CPT/HCPCS: 36000; 36415; 71045; 80053; 81001; 83605; 83880; 84443; 84484; 85025; 85379; 93005; 96374; 99284; J1940; A9270-GY

== ENCOUNTER 2022-12-23 00:14 | Emergency (ER) | payer OTHER ==
--- NOTE | 2022-12-23 00:33 | ERPHSYRPT ---
- History of Present Illness Time Seen by Provider: 12/23/22 00:33 Source: patient Exam Limitations: no limitations Physician History: 62-year-old female presents to the emergency room after finding maggots in her right great toe. He has a history of longstanding fungal infections of her toe poor hygiene. The toenail is lifted off of the nailbed and when they placed peroxide on the toe several maggots exited the wound. She denies any pain except for the toenail. No fevers reported. There is some redness without swelling of the right great toe. No drainage reported. Timing/Duration: today Quality: painful Severity: mild Location: feet (right great toe) Possible Causes: no cause identified Modifying Factors: Improves With: other (peroxide helped) Associated Symptoms: No fever, No paresthesia Allergies/Adverse Reactions: sulfamethoxazole [From Bactrim] Allergy (Verified 12/23/22 00:25) trimethoprim [From Bactrim] Allergy (Verified 12/23/22 00:25) Home Medications: Albuterol 2.5 mg/3 ml Neb [Proventil 2.5 mg/3 ml Neb] 1 vial PO Q4-6HPRN PRN 06/28/22 [History] Aspirin EC 81 mg [Ecotrin 81 mg] 1 tab PO DAILY 06/28/22 [History] Atorvastatin Calcium [Lipitor] 1 tab PO HS 06/28/22 [History] Furosemide 40 mg [Lasix 40 MG] 1 tab PO DAILY 06/28/22 [History] Hydrocodone/Acetaminophen [Hydrocodone-Acetamin 7.5-325] 1 tab PO QID 06/28/22 [History] Levothyroxine Sodium 1 tab PO DAILY 06/28/22 [History] Lisinopril 10 mg [Zestril 10 MG] 1 tab PO BID 06/28/22 [History] Metoprolol Tartrate 50 mg [Lopressor 50 MG] 1 tab PO BID 06/28/22 [History] Omeprazole 1 tab PO DAILY 06/28/22 [History] Potassium Chloride 1 tab PO DAILY 06/28/22 [History] Hx Tetanus, Diphtheria Vaccination/Date Given: Yes Hx Influenza Vaccination/Date Given: No Hx Pneumococcal Vaccination/Date Given: Yes Travel Risk - Vaccine Status Have you recieved a Covid-19 vaccination: No - Review of Systems Constitutional: No Symptoms Musculoskeletal: No Symptoms Skin: Cellulitis (right great toe), Other (swelling) Neurological: No Symptoms - Past Medical History Pertinent Past Medical History: Yes Neurological History: No Pertinent History Cardiac History: Coronary Artery Disease, High Cholesterol, Hypertension, Myocardial Infarction ([place]) Respiratory History: Asthma, COPD, Other Endocrine Medical History: Hypothyroidism Musculoskeletal History: No Pertinent History GI Medical History: GERD History: No Pertinent History Psycho-Social History: No Pertinent History Female Reproductive Disorders: No Pertinent History Other Medical History: smoker - Past Surgical History Past Surgical History: Yes Neuro Surgical History: No Pertinent History Cardiac: Cardiac Catheterization, Cardiac Stent Respiratory: No Pertinent History Gastrointestinal: No Pertinent History Musculoskeletal: No Pertinent History Female Surgical History: Tubal Ligation Other Surgical History: NECK SURGERY - Social History Smoking Status: Current every day smoker How long have you smoked: >25 years Exposure to second hand smoke: No Drug Use: none Patient Lives Alone: No - Nursing Vital Signs Nursing Vital Signs: Initial Vital Signs Temperature 97.7 F 12/23/22 00:29 Pulse Rate 84 12/23/22 00:29 Respiratory Rate 18 12/23/22 00:29 Blood Pressure 101/66 12/23/22 00:29 O2 Sat by Pulse Oximetry 97 12/23/22 00:29 Pain Scale Pain Intensity 0 - Physical Exam General Appearance: no apparent distress, obese Extremity Exam: other (right great toe erythema, toenail lifted off w/ nailbed exposed, no drainagae, TTP, onychomycosis of b/l toenails present), No parasthesia Neurologic Exam: alert, oriented x 3, cooperative SpO2 Interpretation: normal O2 Delivery: Room Air Ordered Tests: Medication Summary Discontinued Medications Generic Name Dose Route Start Last Admin Trade Name Freq PRN Reason Stop Dose Admin Cephalexin HCl 500 mg 12/23/22 00:51 12/23/22 00:57 Cephalexin Mh500 Mg Capsule PO 12/23/22 00:52 500 mg STAT ONE Administration Cephalexin HCl Confirm 12/23/22 00:57 Cephalexin Mh500 Mg Capsule Administered 12/23/22 00:58 Dose 500 mg .ROUTE .STK-MED ONE - Progress Progress: unchanged Progress Note: Wound was examined and cleaned with a Betadine and saline solution. No maggots were found on exam. nail was left in place. Patient was given 500 mg of Keflex and will be discharged home on Keflex 500 mg 3 times a day for 7 days. We did dress the toe with petroleum gauze, Beny and Coban. I strongly encouraged the patient to follow-up with podiatry for further evaluation and ongoing podiatry care. Counseled pt/family regarding: diagnosis, need for follow-up Medical Desision Making - Diagnostic Testing Diagnostic test were ordered, analyzed, and reviewed by me: No - Risk of complications The pt has a mod risk of morbidity or mortality based on: Need for prescription drug management - Departure Departure Disposition: Home Clinical Impression: Maggot infestation, Soft tissue infection of foot Condition: Good Critical Care Time: No Referrals: BAUTISTA ACEVES [Primary Care Provider] - Follow up/PCP as directed AMADOU HERNANDEZ DPM [ACTIVE STAFF] - Follow up/PCP as directed Instructions: Cellulitis (Skin Infection), Adult (DC) Prescriptions: Cephalexin Mh 500 mg [Keflex 500 mg] 500 mg PO TID 7 Days #21 cap
[2022-12-23 00:35] VITALS: PULSE 84
[2022-12-23] MEDS ORDERED: KEFLEX 500 MG PO ONE (00:51)
[2022-12-23] MEDS ORDERED: KEFLEX 500 MG ONE (00:57)
[2022-12-23 01:02] VITALS: BP 121/61; O2SAT 98
== END 2022-12-23 01:09 | disposition home or self-care (01) ==
LOC: ED 00:14
DX: B87.1 Wound myiasis (principal); L08.9 Local infection of the skin and subcutaneous tissue, unspecified; E78.5 Hyperlipidemia, unspecified; I10 Essential (primary) hypertension; Z79.899 Other long term (current) drug therapy; Z72.0 Tobacco use
CPT/HCPCS: 99282; A9270-GY

== ENCOUNTER 2024-03-23 14:23 | Emergency (ER) | payer OTHER ==
[2024-03-23 14:40] VITALS: TEMP 96.8
--- NOTE | 2024-03-23 14:56 | ERPHSYRPT ---
- History of Present Illness Time Seen by Provider: 03/23/24 14:54 Source: patient Exam Limitations: no limitations Patient Subjective Stated Complaint: pt was at Dr. Paredes's office and he sent her to [facility] and they brought her to the ER for shortness of breath and w heezing Triage Nursing Assessment: Pt brought to the ER from [facility], hypertensive, denies pain, coughing, placed on 2LNC due to being at 92% and appearing as if she was short of breath, pulses normal, skin n/w/d, smokes a pack a day, incontinent every time she coughs Physician History: Patient has had 2 days of shortness of breath. She says her cough has been producing some clear and white sputum. She has not had any fever or chills. Exertion makes her symptoms worse. She says she has had pneumonia in the past this feels similar. She does not know if she has had fever or chills at this time. She does not have any COPD but does have asthma. Exertion makes the shortness of breath worse nothing really makes it better. Allergies/Adverse Reactions: sulfamethoxazole [From Bactrim] Allergy (Verified 03/23/24 14:40) trimethoprim [From Bactrim] Allergy (Verified 03/23/24 14:40) Home Medications: Albuterol 2.5 mg/3 ml Neb [Proventil 2.5 mg/3 ml Neb] 1 vial PO Q4-6HPRN PRN 06/28/22 [History] Aspirin EC 81 mg [Ecotrin 81 mg] 1 tab PO DAILY 06/28/22 [History] Atorvastatin Calcium [Lipitor] 1 tab PO HS 06/28/22 [History] Hydrocodone/Acetaminophen [Hydrocodone-Acetamin 7.5-325] 1 tab PO QIDPRN PRN 06/28/22 [History] Levothyroxine Sodium 1 tab PO DAILY 06/28/22 [History] Lisinopril 10 mg [Zestril 10 MG] 1 tab PO BID 06/28/22 [History] Metoprolol Tartrate 50 mg [Lopressor 50 MG] 1 tab PO BID 06/28/22 [History] Omeprazole 1 tab PO DAILY 06/28/22 [History] Albuterol 2.5 mg/3 ml Neb [Proventil 2.5 mg/3 ml Neb] 1 vial IH HS 10/21/23 [History] Fluticasone Propionate 1 spray INTRANASAL BID 10/21/23 [History] Furosemide 80 mg PO DAILY 10/21/23 [History] Hx Tetanus, Diphtheria Vaccination/Date Given: Yes Hx Influenza Vaccination/Date Given: No Hx Pneumococcal Vaccination/Date Given: No Travel Risk - International Travel Have you traveled outside of the country in past 3 weeks: No - Emerging Infectious Disease Are you exhibiting symptoms associated with any current EIDs: Yes Symptoms: Shortness of Breath - Review of Systems Constitutional: Lethargy, Malaise Eyes: No Symptoms Ears, Nose, & Throat: No Symptoms Respiratory: Cough, Dyspnea, Dyspnea on Exertion ([place]) Cardiac: No Symptoms Abdominal/Gastrointestinal: No Symptoms Genitourinary Symptoms: No Symptoms - Past Medical History Pertinent Past Medical History: Yes Neurological History: Other Cardiac History: High Cholesterol, Hypertension, Myocardial Infarction ([place]) Respiratory History: Asthma, COPD Endocrine Medical History: Hypothyroidism, Other Musculoskeletal History: Osteoarthritis GI Medical History: GERD History: No Pertinent History Psycho-Social History: No Pertinent History Female Reproductive Disorders: No Pertinent History Other Medical History: NECK SURGERY-FUSION. KIDNEY FUNCTION DECREASED. 2 [place]. NO PACEMAKER. HISTORY OF OA OF B KNEES. - Past Surgical History Past Surgical History: Yes Neuro Surgical History: No Pertinent History Cardiac: Cardiac Catheterization, Cardiac Stent Respiratory: No Pertinent History Gastrointestinal: No Pertinent History Musculoskeletal: No Pertinent History Female Surgical History: Tubal Ligation Other Surgical History: NECK SURGERY - Social History Smoking Status: Current every day smoker How long have you smoked: >25 years Exposure to second hand smoke: Yes Drug Use: none Patient Lives Alone: No - Social Determinants of Health Will the patient participate in the screening: Yes Do you worry about a steady place to live?: No Do you have any problems with any of the following?: No known problems In the past 12 months,have you had to go without utilities?: No Transportation Issues: No Has anyone in your support network made you feel unsafe?: No Have you or anyone in your house had to go without enough: Yes - Nursing Vital Signs Nursing Vital Signs: Initial Vital Signs Temperature 96.8 F 03/23/24 14:32 Pulse Rate 70 03/23/24 14:32 Respiratory Rate 21 10/14/24 14:32 Blood Pressure 171/64 03/23/24 14:32 O2 Sat by Pulse Oximetry 93 L 03/23/24 14:32 Pain Scale Pain Intensity 0 - Physical Exam General Appearance: no apparent distress Eye Exam: PERRL/EOMI, eyes nml inspection Ears, Nose, Throat Exam: hearing grossly normal, normal ENT inspection Neck Exam: normal inspection, non-tender Respiratory Exam: normal breath sounds, lungs clear, No chest tenderness, No respiratory distress Cardiovascular/Chest Exam: normal heart sounds, regular rate/rhythm Abdominal/Gastrointestinal Exam: soft, normal bowel sounds Neurologic Exam: alert, oriented x 3, cooperative, gate attendant II-XII nml as tested Skin Exam: normal color, warm, dry SpO2 Interpretation: normal SpO2: 92 O2 Delivery: Room Air - Course Nursing assessment & vital signs reviewed: Yes Ordered Tests: Active Orders 24 hr Category Date Time Status CHEST 1 VIEW (PORTABLE) Stat Exams 03/23/24 14:49 Completed BLOOD CULTURE Stat Lab 03/23/24 15:34 Received CBC W DIFF Stat Lab 03/23/24 14:49 Completed CMP Stat Lab 03/23/24 15:15 Completed Lactic Acid Stat Lab 03/23/24 14:50 Completed TROPONIN Q4H Lab 03/23/24 15:15 Completed TROPONIN Q4H Lab 03/23/24 19:00 Ordered TROPONIN Q4H Lab 03/23/24 23:00 Ordered VENOUS BLOOD GAS Stat Lab 03/23/24 14:50 Completed Respiratory Therapy Assessment DAILY RT 03/23/24 17:04 Completed Medication Summary Discontinued Medications Generic Name Dose Route Start Last Admin Trade Name Trudy PRN Reason Stop Dose Admin Albuterol Sulfate 2.5 mg 03/23/24 16:52 03/23/24 17:03 Albuterol Sulfate 2.5 Mg/3 Ml Neb 03/23/24 16:53 2.5 mg STAT ONE Administration Albuterol Sulfate Confirm 03/23/24 16:57 Albuterol Solution 2.5 Mg/0.5 Ml Ud Solution Administered 03/23/24 16:58 Dose 2.5 mg IH .STK-MED ONE Albuterol/Ipratropium 3 ml 03/23/24 16:51 03/23/24 17:03 Ipratropium/Albuterol Sulfate 3 Ml Ampul.Neb 03/23/24 16:52 3 ml STAT ONE Administration Albuterol/Ipratropium Confirm 03/23/24 16:57 Ipratropium/Albuterol Sulfate 3 Ml Ampul.Neb Administered 03/23/24 16:58 Dose 3 ml IH .STK-MED ONE Methylprednisolone Sodium 0 mg 03/23/24 16:52 03/23/24 17:30 Succinate 125 mg/ Sterile IV 03/23/24 16:53 Not Given Water 2 ml STAT ONE Prednisone 20 mg 03/23/24 17:24 03/23/24 17:26 Prednisone 20 Mg Tablet PO 03/23/24 17:25 20 mg STAT ONE Administration Prednisone Confirm 03/23/24 17:26 Prednisone 20 Mg Tablet Administered 03/23/24 17:27 Dose 20 mg .ROUTE .STK-MED ONE Lab/Rad Data: Laboratory Result Diagrams 03/23/24 14:49 03/23/24 15:15 Laboratory Results 03/23/24 03/23/24 03/23/24 Range/Units 15:15 15:15 15:15 WBC (3.98-10.04) x10^3/uL RBC (3.93-5.22) x10^6/uL Hgb (11.2-15.7) g/dL Hct (34.1-44.9) % MCV (79.4-94.8) fL MCH (25.6-32.2) pg MCHC (32.2-35.5) g/dL RDW (11.7-14.4) % Plt Count (182-369) x10^3/uL MPV (9.4-12.3) fL Gran % (34.0-71.1) % Immature Gran % (Auto) (0.001-0.429) % Nucleat RBC Rel Count (0.00-0.2) % Eos # (Auto) (0.04-0.36) x10^3/uL Immature Gran # (Auto) (0.001-0.031) x10^3u/L Absolute Lymphs (auto) (1.18-3.74) x10^3/uL Absolute Monos (auto) (0.24-0.86) x10^3/uL Absolute Nucleated RBC (0.00-0.012) x10^3u/L Lymphocytes % (19.3-51.7) % Monocytes % (4.7-12.5) % Eosinophils % (0.7-5.8) % Basophils % (0.1-1.2) % Absolute Granulocytes (1.56-6.13) x10^3/uL Basophils # (0.01-0.08) x10^3/uL pO2/FiO2 Ratio % VBG pH (7.32-7.42) VBG pCO2 at Pat Temp (42-55) mm/Hg VBG pO2 at Pat Temp (25-40) mm/Hg VBG HCO3 (22-28) meq/L VBG O2 Sat (Shon) (95-100) VBG Base Excess (-2.0-2.0) VBG Hemoglobin VBG Carboxyhemoglobin (0.0-6.9) % T HGB POC Potassium (3.5-5.1) Sodium 142 (135-145) mmol/L Potassium 3.9 (3.5-5.1) mmol/L Chloride 103 (98-107) mmol/L Carbon Dioxide 31 H (22-30) mmol/L Anion Gap 12.1 (5-15) MEQ/L BUN 8 (7-17) mg/dL Creatinine 0.71 (0.52-1.04) mg/dL Estimated GFR 94.9 ML/MIN Glucose 115 H (74-106) mg/dL Lactic Acid (0.4-2.0) Calcium 8.8 (8.4-10.2) mg/dL Total Bilirubin 0.40 (0.2-1.3) mg/dL AST 29 (14-36) U/L ALT 19 (0-35) U/L Alkaline Phosphatase 106 (38-126) U/L Troponin I < 0.012 (0.000-0.033) ng/mL Serum Total Protein 8.3 H (6.3-8.2) g/dL Albumin 4.2 (3.5-5.0) g/dL Influenza Type A Ag NEGATIVE (NEGATIVE) Influenza Type B Ag NEGATIVE (NEGATIVE) RSV (PCR) NEGATIVE (NEGATIVE) SARS-CoV-2 (PCR) NEGATIVE (NEGATIVE) 03/23/24 03/23/24 Range/Units 14:50 14:49 WBC 8.4 (3.98-10.04) x10^3/uL RBC 5.00 (3.93-5.22) x10^6/uL Hgb 14.5 (11.2-15.7) g/dL Hct 47.5 H (34.1-44.9) % MCV 95.0 H (79.4-94.8) fL MCH 29.0 (25.6-32.2) pg MCHC 30.5 L (32.2-35.5) g/dL RDW 14.3 (11.7-14.4) % Plt Count 338 (182-369) x10^3/uL MPV 10.1 (9.4-12.3) fL Gran % 65.6 (34.0-71.1) % Immature Gran % (Auto) 0.5 H (0.001-0.429) % Nucleat RBC Rel Count 0.0 (0.00-0.2) % Eos # (Auto) 0.22 (0.04-0.36) x10^3/uL Immature Gran # (Auto) 0.04 H (0.001-0.031) x10^3u/L Absolute Lymphs (auto) 1.79 (1.18-3.74) x10^3/uL Absolute Monos (auto) 0.76 (0.24-0.86) x10^3/uL Absolute Nucleated RBC 0.00 (0.00-0.012) x10^3u/L Lymphocytes % 21.4 (19.3-51.7) % Monocytes % 9.1 (4.7-12.5) % Eosinophils % 2.6 (0.7-5.8) % Basophils % 0.8 (0.1-1.2) % Absolute Granulocytes 5.47 (1.56-6.13) x10^3/uL Basophils # 0.07 (0.01-0.08) x10^3/uL pO2/FiO2 Ratio 21.0 % VBG pH 7.34 (7.32-7.42) VBG pCO2 at Pat Temp 59 H (42-55) mm/Hg VBG pO2 at Pat Temp 26 (25-40) mm/Hg VBG HCO3 31.8 H* (22-28) meq/L VBG O2 Sat (Shon) 42.5 L (95-100) VBG Base Excess 4.2 H (-2.0-2.0) VBG Hemoglobin 14.9 VBG Carboxyhemoglobin 6.7 (0.0-6.9) % T HGB POC Potassium 4.2 (3.5-5.1) Sodium (135-145) mmol/L Potassium (3.5-5.1) mmol/L Chloride (98-107) mmol/L Carbon Dioxide (22-30) mmol/L Anion Gap (5-15) MEQ/L BUN (7-17) mg/dL Creatinine (0.52-1.04) mg/dL Estimated GFR ML/MIN Glucose (74-106) mg/dL Lactic Acid 1.1 (0.4-2.0) Calcium (8.4-10.2) mg/dL Total Bilirubin (0.2-1.3) mg/dL AST (14-36) U/L ALT (0-35) U/L Alkaline Phosphatase (38-126) U/L Troponin I (0.000-0.033) ng/mL Serum Total Protein (6.3-8.2) g/dL Albumin (3.5-5.0) g/dL Influenza Type A Ag (NEGATIVE) Influenza Type B Ag (NEGATIVE) RSV (PCR) (NEGATIVE) SARS-CoV-2 (PCR) (NEGATIVE) - Progress Progress: improved Air Movement: good Progress Note: Patient tolerated her procedures and treatments well. Her x-ray and lab work all look good. On the differential was coronary vascular event, congestive heart failure, asthma exacerbation, pneumonia, COVID flu and RSV. It looks like the patient is probably having a COPD or asthma exacerbation. I went to start her on prednisone and have her continue her breathing medications at home. She is to return if symptoms worsen follow-up with primary care doctor. She does not need antibiotics at this time. 03/23/24 17:38 Medical Desision Making - Social Determinants of Health Pt's dx & treatment plan are significantly limited by SDOH: limited education - Diagnostic Testing Diagnostic test were ordered, analyzed, and reviewed by me: Yes Radiological Interpretation: Interpreted by me - Risk of complications Minimal Risk: Minimal risk of morbidity - Departure Departure Disposition: Home Clinical Impression: COPD (chronic obstructive pulmonary disease) Condition: Stable Critical Care Time: No Referrals: BAUTISTA ACEVES [Primary Care Provider] - Follow up/PCP as directed Instructions: Chronic Obstructive Pulmonary Disease, Exacerbation of COPD ([place])
--- NOTE | 2024-03-23 15:16 | XRAY ---
Indication: Dyspnea. Comparison: July 14, 2022 Portable chest rotated with new left mid to lower lung hazy interstitial alveolar opacities without consolidation/large effusion. Remaining heart and right lung unremarkable. Bony thorax intact again with osteopenia, degenerative changes, and incompletely visualized cervical fusion hardware.
[2024-03-23 15:19] LABS: Lactic Acid 1.1 (0.4-2.0); VBG BASE EXCESS 4.2 (-2.0-2.0); VBG CARBOXYHEMOGLOBIN 6.7 % T HGB (0.0-6.9); VBG HCO3- 31.8 meq/L (22-28); VBG HEMOGLOBIN 14.9; VBG O2 SATURATION 42.5 (95-100); VBG POTASSIUM 4.2 (3.5-5.1); VBG pH 7.34 (7.32-7.42)
[2024-03-23 15:21] LABS: Absolute Neutrophil Ct (ANC) 5.47 x10^3/uL (1.56-6.13); BASOPHIL % 0.8 % (0.1-1.2); Basophil (Absolute #) 0.07 x10^3/uL (0.01-0.08); Eosinophil % 2.6 % (0.7-5.8); Eosinophil (Absolute #) 0.22 x10^3/uL (0.04-0.36); Hematocrit 47.5 % (34.1-44.9); Hemoglobin 14.5 g/dL (11.2-15.7); IMMATURE GRAN # 0.04 x10^3u/L (0.001-0.031); IMMATURE GRAN % 0.5 % (0.001-0.429); Lymphocyte (Absolute #) 1.79 x10^3/uL (1.18-3.74); Lymphocytes % 21.4 % (19.3-51.7); Mean Corpuscular Hgb Concent. 30.5 g/dL (32.2-35.5); Mean Platelet Volume 10.1 fL (9.4-12.3); Monocyte (Absolute #) 0.76 x10^3/uL (0.24-0.86); Monocytes % 9.1 % (4.7-12.5); Neutrophil % 65.6 % (34.0-71.1); Platelet Count 338 x10^3/uL (182-369); Red Cell Distribution Width 14.3 % (11.7-14.4); White Blood Count 8.4 x10^3/uL (3.98-10.04)
[2024-03-23 15:35] LABS: ALBUMIN 4.2 g/dL (3.5-5.0); ANION GAP 12.1 MEQ/L (5-15); BILIRUBIN,TOTAL 0.4 mg/dL (0.2-1.3); Calcium 8.8 mg/dL (8.4-10.2); Creatinine 1 0.71 mg/dL (0.52-1.04); EST GLOMERULAR FILTRATION RATE 94.9 ML/MIN; Potassium 3.9 mmol/L (3.5-5.1); Total Protein 8.3 g/dL (6.3-8.2)
[2024-03-23 16:19] LABS: INFLUENZA A NEGATIVE (NEGATIVE); INFLUENZA B NEGATIVE (NEGATIVE); RESPIRATORY SYNCTIAL VIRUS NEGATIVE (NEGATIVE); SARS-CoV-2 Xpert Express NEGATIVE (NEGATIVE)
[2024-03-23] MEDS ORDERED: PROVENTIL Solution 2.5 MG/0.5 ML IH ONE (16:57)
[2024-03-23] MEDS ORDERED: DUONEB 0.5-3 MG/3 ml Neb IH ONE (16:57)
[2024-03-23] MEDS: DUONEB 0.5-3 MG/3 ml Neb IH ONE (17:03)
[2024-03-23] MEDS: PROVENTIL 2.5 MG/3 ML NEB IH ONE (17:03)
[2024-03-23 17:06] VITALS: PULSE 85; RESP 18
[2024-03-23] MEDS: DELTASONE 20 MG PO ONE (17:26)
[2024-03-23] MEDS ORDERED: DELTASONE 20 MG ONE (17:26)
[2024-03-23] MEDS: solu-MEDROL 125 MG, Sterile H2O 10 ml 2 ML IV ONE (17:30)
[2024-03-23 17:40] VITALS: O2SAT 92
[2024-03-23 17:47] VITALS: BP 190/106
== END 2024-03-23 17:50 | disposition home or self-care (01) ==
LOC: ED 14:23
DX: J44.9 Chronic obstructive pulmonary disease, unspecified (principal); R06.02 Shortness of breath; R05.9 Cough, unspecified; E78.5 Hyperlipidemia, unspecified; I10 Essential (primary) hypertension; Z79.899 Other long term (current) drug therapy; Z72.0 Tobacco use; Z55.9 Problems related to education and literacy, unspecified; Z59.41 Food insecurity
CPT/HCPCS: 0241U; 36415; 71045; 80053; 82805; 83605; 84484; 85025; 87040; 94640; 99283; J7609; A9270-GY

== ENCOUNTER 2024-05-27 15:43 | Inpatient (IN) | payer OTHER ==
[2024-05-27] MEDS ORDERED: NALOXONE HCL 4 MG NS SCH (16:15)
[2024-05-27] MEDS: NORCO 7.5/325 MG TAB PO PRN (16:23)
[2024-05-27] MEDS ORDERED: MEDICATION INTERVENTION MC SCH (16:30)
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
[2024-05-27] MEDS: PROVENTIL 2.5 MG/3 ML NEB IH PRN (16:42)
--- NOTE | 2024-05-27 16:50 | XRAY ---
Indication: CHF. Short of breath. Comparison: March 23, 2024 Portable chest demonstrates clearing previous left interstitial alveolar opacities. New mild left midlung and right base subsegmental atelectasis/scarring. Remaining heart and upper lungs are unremarkable. Bony thorax intact again with osteopenia, degenerative changes, and incompletely visualized cervical fusion hardware. Impression: Nonacute chest with chronic features.
[2024-05-27 16:55] LABS: Hematocrit 44.9 % (34.1-44.9); Hemoglobin 13.8 g/dL (11.2-15.7); Mean Cell Volume 93.9 fL (79.4-94.8); Mean Corpuscular Hemoglobin 28.9 pg (25.6-32.2); Mean Corpuscular Hgb Concent. 30.7 g/dL (32.2-35.5); Mean Platelet Volume 9.7 fL (9.4-12.3); Platelet Count 413 x10^3/uL (182-369); Red Blood Count 4.78 x10^6/uL (3.93-5.22); Red Cell Distribution Width 15.5 % (11.7-14.4); White Blood Count 12.3 x10^3/uL (3.98-10.04)
[2024-05-27 17:08] LABS: ALBUMIN 4.1 g/dL (3.5-5.0); ANION GAP 8.6 MEQ/L (5-15); BILIRUBIN,TOTAL 0.2 mg/dL (0.2-1.3); Calcium 8.5 mg/dL (8.4-10.2); Creatinine 1 0.69 mg/dL (0.52-1.04); EST GLOMERULAR FILTRATION RATE 96.9 ML/MIN; Potassium 3.4 mmol/L (3.5-5.1)
[2024-05-27] MEDS: PHARMACY DOSING REQUIRED: VANCOMYCIN IV STA (17:38)
[2024-05-27] MEDS: Adacel Vial IM ONE (18:15)
[2024-05-27] MEDS: ENOXAPARIN SODIUM SQ SCH (18:15)
[2024-05-27] MEDS: PIPERACILLIN/TAZOBACTAM 3.375 GM in Sodium Chloride 100ML MINI-BAG PLUS 100 ML IV SCH (18:20)
[2024-05-27] MEDS: VANCOMYCIN 1 GRAM/200 ML BAG 1 GM/200 ML PIGGYBACK IV SCH (18:20)
[2024-05-27] MEDS: Lasix 40 MG/4 ML IV SCH (18:27)
[2024-05-27] MEDS: NYSTOP POWDER 15 GM TP SCH (21:28)
[2024-05-27] MEDS: Lopressor 50 MG PO SCH (21:29)
[2024-05-27] MEDS: ZOCOR 20MG PO SCH (21:29)
[2024-05-27] MEDS: Zestril 10 MG PO SCH (21:29)
[2024-05-28] MEDS: Flonase NASAL NS SCH (02:32)
[2024-05-28 05:38] LABS: Hematocrit 41.3 % (34.1-44.9); Hemoglobin 12.2 g/dL (11.2-15.7); Mean Cell Volume 94.7 fL (79.4-94.8); Mean Corpuscular Hgb Concent. 29.5 g/dL (32.2-35.5); Mean Platelet Volume 9.8 fL (9.4-12.3); Platelet Count 369 x10^3/uL (182-369); Red Blood Count 4.36 x10^6/uL (3.93-5.22); Red Cell Distribution Width 15.6 % (11.7-14.4); White Blood Count 9.9 x10^3/uL (3.98-10.04)
[2024-05-28 06:06] LABS: ALBUMIN 3.6 g/dL (3.5-5.0); ANION GAP 7.2 MEQ/L (5-15); BILIRUBIN,TOTAL 0.3 mg/dL (0.2-1.3); Calcium 8.2 mg/dL (8.4-10.2); Creatinine 1 0.85 mg/dL (0.52-1.04); EST GLOMERULAR FILTRATION RATE 76.5 ML/MIN; Potassium 3.3 mmol/L (3.5-5.1); Total Protein 6.9 g/dL (6.3-8.2)
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
[2024-05-28] MEDS: Zaroxolyn 2.5 MG PO SCH (09:50)
[2024-05-28] MEDS: SYNTHROID 75 MCG PO SCH (09:50)
[2024-05-28] MEDS: Protonix 40MG Tablet PO SCH (09:50)
[2024-05-28] MEDS: Klor Con PO ONE (09:50)
[2024-05-28] MEDS: ECOTRIN 81 MG PO SCH (09:50)
[2024-05-28] MEDS: Klor Con PO SCH (09:50)
[2024-05-28] MEDS: SYNTHROID 100 MCG PO SCH (09:50)
[2024-05-28] MEDS ORDERED: NON-FORMULARY ITEM (Furosemide [Furosemide] 80 MG Tablet) PO SCH (10:00)
[2024-05-28 14:11] LABS: MAGNESIUM 1.8 mg/dL (1.6-2.3); Potassium 3.8 mmol/L (3.5-5.1)
[2024-05-29] MEDS: TROUGH DRUG LEVELS IJ ONE (05:03)
[2024-05-29 05:04] LABS: Hematocrit 39.7 % (34.1-44.9); Hemoglobin 11.8 g/dL (11.2-15.7); Mean Cell Volume 94.3 fL (79.4-94.8); Mean Corpuscular Hgb Concent. 29.7 g/dL (32.2-35.5); Mean Platelet Volume 9.6 fL (9.4-12.3); Platelet Count 377 x10^3/uL (182-369); Red Blood Count 4.21 x10^6/uL (3.93-5.22); White Blood Count 9.4 x10^3/uL (3.98-10.04)
[2024-05-29 05:21] LABS: ALBUMIN 3.8 g/dL (3.5-5.0); ANION GAP 8.9 MEQ/L (5-15); BILIRUBIN,TOTAL 0.4 mg/dL (0.2-1.3); Calcium 8.2 mg/dL (8.4-10.2); Creatinine 1 1.59 mg/dL (0.52-1.04); EST GLOMERULAR FILTRATION RATE 36.1 ML/MIN; MAGNESIUM 1.8 mg/dL (1.6-2.3); Potassium 3.9 mmol/L (3.5-5.1); Total Protein 7.3 g/dL (6.3-8.2)
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
[2024-05-30 06:07] LABS: Hematocrit 38.3 % (34.1-44.9); Hemoglobin 11.4 g/dL (11.2-15.7); Mean Cell Volume 95.8 fL (79.4-94.8); Mean Corpuscular Hemoglobin 28.5 pg (25.6-32.2); Mean Corpuscular Hgb Concent. 29.8 g/dL (32.2-35.5); Mean Platelet Volume 9.6 fL (9.4-12.3); Platelet Count 353 x10^3/uL (182-369); Red Cell Distribution Width 16.1 % (11.7-14.4); White Blood Count 8.7 x10^3/uL (3.98-10.04)
[2024-05-30 06:33] LABS: ALBUMIN 3.7 g/dL (3.5-5.0); ANION GAP 8.4 MEQ/L (5-15); BILIRUBIN,TOTAL 0.3 mg/dL (0.2-1.3); Creatinine 1 1.36 mg/dL (0.52-1.04); EST GLOMERULAR FILTRATION RATE 43.5 ML/MIN; NT PRO BNPII 89.9 pg/mL (<300); Potassium 3.9 mmol/L (3.5-5.1); Total Protein 7.3 g/dL (6.3-8.2)
[2024-05-30] MEDS: Tums EX 750 MG PO SCH (08:55)
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
[2024-05-31 06:25] LABS: Hemoglobin 11.2 g/dL (11.2-15.7); Mean Cell Volume 95.5 fL (79.4-94.8); Mean Corpuscular Hemoglobin 28.1 pg (25.6-32.2); Mean Corpuscular Hgb Concent. 29.5 g/dL (32.2-35.5); Mean Platelet Volume 9.8 fL (9.4-12.3); Platelet Count 394 x10^3/uL (182-369); Red Blood Count 3.98 x10^6/uL (3.93-5.22); White Blood Count 8.5 x10^3/uL (3.98-10.04)
[2024-05-31 06:48] LABS: ALBUMIN 3.7 g/dL (3.5-5.0); ANION GAP 8.6 MEQ/L (5-15); BILIRUBIN,TOTAL 0.3 mg/dL (0.2-1.3); Calcium 8.5 mg/dL (8.4-10.2); Creatinine 1 1.05 mg/dL (0.52-1.04); EST GLOMERULAR FILTRATION RATE 59.3 ML/MIN; Potassium 3.9 mmol/L (3.5-5.1); Total Protein 7.3 g/dL (6.3-8.2)
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
[2024-06-01 04:55] LABS: Hematocrit 37.6 % (34.1-44.9); Mean Cell Volume 96.4 fL (79.4-94.8); Mean Corpuscular Hemoglobin 28.2 pg (25.6-32.2); Mean Corpuscular Hgb Concent. 29.3 g/dL (32.2-35.5); Mean Platelet Volume 9.7 fL (9.4-12.3); Platelet Count 367 x10^3/uL (182-369); Red Cell Distribution Width 15.9 % (11.7-14.4); White Blood Count 7.9 x10^3/uL (3.98-10.04)
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
[2024-06-01 05:24] LABS: ALBUMIN 3.8 g/dL (3.5-5.0); ANION GAP 8.6 MEQ/L (5-15); BILIRUBIN,TOTAL 0.3 mg/dL (0.2-1.3); Calcium 8.6 mg/dL (8.4-10.2); Creatinine 1 0.99 mg/dL (0.52-1.04); EST GLOMERULAR FILTRATION RATE 63.7 ML/MIN; Potassium 4.3 mmol/L (3.5-5.1); Total Protein 7.5 g/dL (6.3-8.2)
[2024-06-01 07:55] VITALS: RESP 16
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
[2024-06-01 11:47] VITALS: O2SAT 92
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
[2024-06-01 16:29] VITALS: BP 157/71; PULSE 69; TEMP 98
== END 2024-06-01 17:12 | disposition home or self-care (01) | DRG 935 ==
LOC: MED SURG 15:43 → OBSVTOIN 16:51
PROVIDERS: ADMIT Internal Medicine; ATTEND Internal Medicine
PROC: 2W1MX6Z Compression of Left Lower Extremity using Pressure Dressing (ICD-10-PCS; principal; 2024-05-29)
PROC: 2W1LX6Z Compression of Right Lower Extremity using Pressure Dressing (ICD-10-PCS; 2024-05-29)
DX: T31.10 Burns involving 10-19% of body surface with 0% to 9% third degree burns (principal); N17.9 Acute kidney failure, unspecified; Z68.42 Body mass index [BMI] 45.0-49.9, adult; L03.115 Cellulitis of right lower limb; L03.116 Cellulitis of left lower limb; T14.90XA Injury, unspecified, initial encounter; R60.0 Localized edema; E87.6 Hypokalemia; B37.2 Candidiasis of skin and nail; J44.9 Chronic obstructive pulmonary disease, unspecified; E78.5 Hyperlipidemia, unspecified; E66.01 Morbid (severe) obesity due to excess calories; I11.0 Hypertensive heart disease with heart failure; I50.9 Heart failure, unspecified; F17.200 Nicotine dependence, unspecified, uncomplicated; E66.9 Obesity, unspecified; Z91.199 Patient's noncompliance with other medical treatment and regimen due to unspecified reason; Z79.899 Other long term (current) drug therapy
CPT/HCPCS: 11042; 11045; 29580; 36415; 71045; 80053; 80202; 83735; 83880; 84132; 85027; 87040; 87070; 87077; 87186; 90715; 94640; 94760; 99213; 99221; 99232; J1650; J1940; J7609; Q3014; A9270-GY; J3370